=== PATIENT | male | born 1970 | race Caucasian/White ===

== ENCOUNTER 2017-01-01 03:09 | Inpatient (IN) | payer OTHER ==
--- NOTE | 2017-01-01 03:40 | ED.PDOC ---
History of Present Illness - General Chief Complaint: GI Problem Stated Complaint: n/v/d Time Seen by Provider: 01/01/17 03:33 Information Source: patient, RN notes reviewed, Vital Signs reviewed, family Exam Limitations: no limitations - History of Present Illness Initial Comments: Patient comes in with a flare up of his Crohn's Disease. He has been having problems for the past several months. Ever since his last surgery in 2015. He called his GI tonight due to worsening pain and blood in his stool and was told to come to the ER for IV Solu-Medrol and antibiotics. He has been very nauseated today also, not able to keep his medications down. He has not started on his Humira yet due to pharmacy issues. Abdominal Pain Onset Location: generalized abdomen Pain Radiation: no radiation Quality: severe, cramping, stabbing Timing/Duration: getting worse - Symptoms for months, worse today Improving Factors: nothing Worsening Factors: movement Associated Symptoms: diarrhea, fatigue, nausea/vomiting Review of Systems - Review of Systems Constitutional: States: no symptoms reported EENTM: States: no symptoms reported Respiratory: States: no symptoms reported. Denies: short of breath Cardiology: States: no symptoms reported. Denies: chest pain Gastrointestinal/Abdominal: States: see HPI, abdominal pain, diarrhea, nausea, vomiting Genitourinary: States: no symptoms reported Musculoskeletal: States: no symptoms reported Skin: States: no symptoms reported Neurological: States: headache Endocrine: States: no symptoms reported, other - ~ 40-50# weight loss over past 3-4 months due to his Crohn's Hematologic/Lymphatic: States: no symptoms reported Past Medical History (General) - Patient Medical History Hx Seizures: Yes Hx Asthma: Yes Hx Hypertension: Yes Hx Gastroesophageal Reflux: Yes Surgical History: other - Vaccination History Hx Tetanus, Diphtheria Vaccination: Yes Hx Influenza Vaccination: No - Social History Hx Tobacco Use: No Hx Alcohol Use: Yes Family Medical History - Family History Grandparents Family History: Unknown Cause of : cancer Physical Exam - Physical Exam General Appearance: Alert, Obvious distress, Ill Appearing, Well Developed, Well Groomed, Well Nourished Respiratory: chest non-tender, lungs clear, normal breath sounds, no respiratory distress, no accessory muscle use Cardiovascular/Chest: regular rate, rhythm, no edema, no gallop, no JVD, no murmur Gastrointestinal/Abdominal: guarding, tenderness - difusely tender Neurologic: alert, normal mood/affect, oriented x 3 Skin Exam: normal color, warm/dry Progress - Progress Progress: 01/01/17 03:47 Discussed usual treatment for his Crohn's flares. Will start with Solu-Medrol 500mg IV with Zofran and Dilaudid. Then will do IV antibiotics Levaquin and Flagyl. Can't take Sulfasalazine due to NSAID allergy. Patient agreeable with plan. 01/01/17 05:12 Patient is now having a panic attack. He is scared that he is going to need more surgery. He has a history of panic attacks that are treated with Ativan or Xanax. He is laying in bed, curled up shaking and crying. 01/01/17 05:13 Will give some Ativan. 01/01/17 06:10 Anxiety is better but still complaining of 10/10 abd pain despite Dilaudid 2mg IV. Can't use Toradol due to NSAID allergy and now reports can't use Fentanyl due to it making him suicidal. Will add a small dose of Morphine but plan no further pain medications after this. 01/01/17 06:14 now reports he is allergic to Morphine. Will hold off on further pain medication for now. 01/01/17 07:19 Discussed further management with patient and with Hospitalist, Kate Valles. He would like to stay her and continue steroid and antibiotic treatments. Reports typically for his flare it takes 3 rounds of steroids to get things settled down. Kate will come and evaluate patient to determine if she feels admission here is appropriate. Care and plan discussed with Dr. Bee, ER Physician. Departure - Departure Disposition: Discharge to Home or Self Care Condition: Fair Departure Forms: ED Discharge - Pt. Copy, Patient Portal Self Enrollment Home Medications: Ambulatory Orders ALPRAZolam [Xanax] 0.5 mg PO TID 01/01/17 Diphenoxylate/Atropine [Lomotil Tab] 2.5 mg PO PRN 01/01/17 Duloxetine HCl [Cymbalta] 60 mg PO BID 01/01/17 [place] 10/325 1 dose PO PRN 01/01/17 Decision To Admit - Decistion To Admit Decision to Admit Reason: Admit from ER - Crohn's Flare
[2017-01-01] MEDS ORDERED: ONDANSETRON INJ 4 MG/2 ML VIAL IV ONE (03:44)
[2017-01-01] MEDS ORDERED: levoFLOXacin 500MG IV 500 MG in PREMIX BAG 1 BAG IVPB ONE (03:44)
[2017-01-01] MEDS ORDERED: metroNIDAZOLE IV PREMIX 500MG 500 MG in PREMIX BAG 1 BAG IVPB ONE (03:44)
[2017-01-01] MEDS ORDERED: HYDROmorphone HCL INJ 2 MG/ML VIAL IV ONE ×6 (03:44→12:20)
[2017-01-01] MEDS ORDERED: methylPREDNISolone SODIUM SUC 500 MG in SODIUM CHLORIDE 0.9% 250ML 250 ML IVPB ONE (03:44)
[2017-01-01] MEDS ORDERED: SODIUM CHLORIDE 0.9% 250ML 250 ML ONE (03:58)
[2017-01-01] MEDS ORDERED: METHYLPREDNISOLONE SODIUM SUC ONE (03:58)
[2017-01-01] MEDS ORDERED: metroNIDAZOLE IV PREMIX 500MG 100 ML IVPB ONE ×3 (05:13→18:25)
[2017-01-01] MEDS ORDERED: levoFLOXacin 500MG IV 100 ML IVPB ONE (05:53)
[2017-01-01] MEDS ORDERED: MORPHINE SULFATE INJ 10 MG/ML VIAL IV ONE (06:12)
[2017-01-01] MEDS ORDERED: PROMETHAZINE TAB (ER DISP) 25 MG TAB PO ONE (07:42)
[2017-01-01] MEDS ORDERED: PROMETHAZINE HCL 25 MG TAB ONE ×2 (07:45→07:58)
[2017-01-01] MEDS ORDERED: PROMETHAZINE HCL 25 MG TAB PO ONE (08:01)
--- NOTE | 2017-01-01 09:19 | CT ---
PROCEDURE: CT OF THE ABDOMEN AND PELVIS WITH INTRAVENOUS CONTRAST HISTORY: Crohn's, abdominal pain Indication: Same as above Comparison: 04/29/2016 . Technique: CT of the abdomen and pelvis was done with intravenous contrast. Images were obtained from the lung base to the level of the pubic symphysis in axial plane, followed by orthogonal sagittal and coronal reconstruction. Oral contrast was not given for the study. The patient was injected with contrast intravenously, without any documented immediate adverse reactions. This exam was performed according to our departmental dose-optimization program, which includes automated exposure control, adjustment of the mA and/or KV according to the patient's size and/or use of iterative reconstruction technique. FINDINGS: Images through the lung bases do not show any focal infiltrates or pleural effusions. The liver, pancreas, spleen and the bilateral adrenal glands appear unremarkable. The gallbladder is surgically absent The bilateral kidneys enhance with contrast in a normal fashion. The urinary bladder is unremarkable . The bilateral ureters and the bilateral periureteral soft tissues and fat planes are unremarkable. The small bowel does not show any evidence of small bowel obstruction or bowel wall thickening. There is no CT evidence of acute colonic diverticulitis or colitis or large bowel obstruction. There is evidence of prior surgery in the proximal large bowel and the distal small bowel. The splenic and portal veins are of normal caliber, without any filling defects. There is no pathological lymphadenopathy in the retroperitoneum or in the pelvic region. There is no evidence of free fluid or free air in the abdomen or the pelvic region. There is no clinically significant abdominal aortic aneurysm. There is presence of small fat-containing bilateral inguinal hernia defects The visualized lumbar spine is unremarkable . The paravertebral soft tissues are unremarkable. The remainder of the pelvic structures are unremarkable. IMPRESSION: The small bowel does not show any evidence of small bowel obstruction or bowel wall thickening. There is no CT evidence of acute colonic diverticulitis or colitis or large bowel obstruction. There is evidence of prior surgery in the proximal large bowel and the distal small bowel.. Location of Interpretation: [facility] Electronically signed by: Graham Lopes MD 01/01/2017 9:18 AM CDT
[2017-01-01] MEDS ORDERED: SODIUM CHLORIDE 0.9% 1000ML 1,000 ML IVS ONE (09:46)
[2017-01-01] MEDS ORDERED: HYDROmorphone HCL INJ 2 MG/ML VIAL ONE (09:46)
--- NOTE | 2017-01-01 10:13 | HP ---
SUPERVISING PHYSICIAN: Xavier Hightower M.D. CHIEF COMPLAINT: Abdominal pain. HISTORY OF PRESENT ILLNESS: This is a 46 year-old male patient who has a 20 plus year history of Crohn's disease who presented to the Emergency Room today with a Crohn's flare-up. He has been having a flare off and on over the last 4 months. He has had a history of 4 bowel resections due to the Crohn's. His most recent in August of 2016. In the Emergency Room, he was given 500 mg of Solu-Medrol as well as some fluids. He was also given antiemetics as well as pain medication. CT of his abdomen was basically within normal limits. Lab showed a WBC 9.3, hemoglobin 13.5, hematocrit 41.5, neutrophils 71.5. Chemistry was basically within normal limits. Lactic acid 2.1. I was called for admission to the hospital. Prior to admission, I spoke with Dr. Villanueva who is a scheduling clerk in [place]. Dr. Villanueva was the on-call physician for the GI group in [place] as the patient sees Dr. Ramos in that group. I spoke with him because his labs are stable, as well he has a negative abdominal CT. He recommended that we admit him for pain control as well as helping to resolve the Crohn's flare-up. PAST MEDICAL HISTORY: 1. Spinal stenosis. 2. Neuropathy. 3. Pulmonary embolism 4. Hypertension but presently on no medications. 5. Neck and lumbar fracture. 6. Chronic back pain. 7. Insomnia. 8. Depression with anxiety. PAST SURGICAL HISTORY: 1. Colon resection times 4. OUTPATIENT MEDICATIONS: Per the EMR and awaiting verification. ALLERGIES: NSAIDs, FENTANYL AND MORPHINE. FAMILY HISTORY: SOCIAL HISTORY: He was newly yesterday. He just recently moved to [place] to take care of his parents. He denies any ETOH, tobacco or illicit drug use. REVIEW OF SYSTEMS: GENERAL: Positive for fatigue and weight loss of about 40 to 50 pounds since his surgery in August of 2016. Denies fever or chills. HEENT: Denies sinus symptoms, ear pain, vision changes or sore throat. LUNGS: Denies coughing, shortness of breath or wheezing. CARDIAC: Denies chest pain, palpitations or tachycardia. GASTROINTESTINAL: Complains of diffuse abdominal pain but mostly centered in the right upper and lower quadrants and radiates to the umbilicus. He also complains of some nausea and occasional vomiting as well as chronic diarrhea. GENITOURINARY: Denies hematuria, dysuria or nocturia. NEUROLOGIC: Complains of headache. Denies dizziness or seizures. PHYSICAL EXAMINATION: VITAL SIGNS: He is afebrile, heart rate 110, blood pressure 151/83, respiratory rate 18, O2 sat 95%. GENERAL: This is a 46 year-old male patient who is in obvious distress due to pain. HEENT: Normocephalic and atraumatic. Pupils are equal and reactive. Oropharynx is clear. NECK: Supple without mass. There is no jugular venous distention. CHEST: Clear to auscultation bilaterally. There is equal rise and fall of the chest with inspiration and expiration. CARDIOVASCULAR: Regular rate and rhythm. ABDOMEN: Soft, nondistended but it is diffusely tender throughout, but there is pin point moderate tenderness to the right side that radiates to the umbilicus. There is no rebound tenderness. EXTREMITIES: No cyanosis, clubbing or edema. NEUROLOGIC: He is awake, alert and oriented times three. LABORATORY AND RADIOLOGY: Labs and films are as per the history of present illness. ASSESSMENT: 1. Significant history of Crohn's disease with an acute exacerbation. 2. Severe right upper and lower quadrant abdominal pain. 3. Status post bowel resection due to number 1 in August of 2016. 4. Anxiety with depression. 5. Chronic pain with spinal stenosis. 6. Anorexia since surgery in August 2016 with a 40 plus pound weight loss. 7. Insomnia. PLAN: Per recommendation of Dr. Villanueva, GI doctor in [place], we will admit the patient to the hospital. We will taper off his steroids and get his pain under control with Fentanyl. I have also ordered several antiemetics to help with the nausea. We will have to watch him closely. Dr. Villanueva stated that he would probably be in the hospital for several days and hopefully we can get his pain under control. He was to be started on Humira at some point, but he cannot start it with the flare and he has not been able to get it under control to start that, so maybe at some point he can get his Humira started. He will have to have close followup with Dr. Ramos, the GI physician in [place]. Because he has just moved to [place], he does not have a primary care physician so we will need to get him in with a primary care physician. Otherwise I have ordered lab in the morning and we will follow him closely and followup as needed. Dr. Hightower is the collaborating physician available for consultation. #[id number] [facility]
[2017-01-01] MEDS ORDERED: diphenhydrAMINE HCL 25 MG CAP PO PRN (11:37)
[2017-01-01] MEDS ORDERED: diphenhydrAMINE HCL 50 MG/ML VIAL IM PRN (11:37)
[2017-01-01] MEDS ORDERED: NALOXONE HCL INJ 0.4 MG/ML VIAL IV PRN (11:37)
[2017-01-01] MEDS ORDERED: diphenhydrAMINE HCL 50 MG/ML VIAL IV PRN (11:37)
[2017-01-01] MEDS ORDERED: PROCHLORPERAZINE INJ 10 MG/2 ML VIAL IV PRN (11:40)
[2017-01-01] MEDS ORDERED: HYDROmorphone PCA 0.2 MG/ML 1 BAG BAG IVPB SCH (12:00)
[2017-01-01] MEDS: DULoxetine HCL 30 MG CAP PO SCH ×2 (13:26→20:51)
[2017-01-01] MEDS: methylPREDNISolone SODIUM SUC 40 MG/ML VIAL IV SCH ×2 (13:26→20:51)
[2017-01-01] MEDS: IV SET AND CAP CHANGE INJ INJ SCH (13:27)
--- NOTE | 2017-01-01 13:27 | PCM.CORE ---
Physician DVT/VTE - Nurse DVT Assessment & Total Each Risk Factor Represents 3 Points: Hx of DVT/PE Each Risk Factor Represents 1 Point: Age 41-60, Medical PT at Bed Rest Each Risk Factor is 1 Point: Hx of Inflammatory Bowel Disease DVT Assessment Score: 6 - 5 or more Very High Risk Treatments: Early Ambulation *, Sequential Compression Device Pharmacological: Enoxaparin 40mg SQ Daily
[2017-01-01] MEDS: metroNIDAZOLE IV PREMIX 500MG 500 MG in PREMIX BAG 1 BAG IVPB SCH ×2 (13:30→22:09)
[2017-01-01] MEDS: HYOSCYAMINE SULFATE 0.125 MG TAB PO SCH ×2 (13:36→20:50)
[2017-01-01] MEDS: ALPRAZolam 0.5 MG TAB PO SCH ×2 (14:28→20:51)
[2017-01-01] MEDS: HYDROcodone 10MG/APAP 325MG 1 EA TAB PO SCH ×2 (14:28→21:30)
[2017-01-01] MEDS: PROMETHAZINE HCL 25 MG TAB PO PRN ×2 (14:35→21:05)
[2017-01-01] MEDS ORDERED: ALPRAZolam 0.5 MG TAB PO SCH (15:00)
[2017-01-01] MEDS: HYDROmorphone HCL INJ 2 MG/ML VIAL IV PRN ×2 (16:35→20:52)
[2017-01-01] MEDS: ONDANSETRON INJ 4 MG/2 ML VIAL IV PRN (16:47)
[2017-01-01] MEDS: SODIUM CHLORIDE 0.9% (FLUSH) 10 ML SYG IV SCH (20:53)
[2017-01-01] MEDS ORDERED: NON-FORMULARY MEDICATION 1 EA MIS (Duloxetine Hcl [Cymbalta] 60 MG) PO SCH (21:00)
[2017-01-01] MEDS: SODIUM CHLORIDE 0.9% (FLUSH) 10 ML SYG IV PRN (22:08)
[2017-01-01] MEDS: ZOLPIDEM TARTRATE 10 MG TAB PO PRN (22:37)
[2017-01-02] MEDS: HYDROmorphone HCL INJ 2 MG/ML VIAL IV PRN ×5 (01:02→21:06)
[2017-01-02] MEDS: ONDANSETRON INJ 4 MG/2 ML VIAL IV PRN ×2 (01:03→11:28)
[2017-01-02] MEDS: PROMETHAZINE HCL 25 MG TAB PO PRN ×2 (03:13→21:34)
[2017-01-02] MEDS ORDERED: metroNIDAZOLE IV PREMIX 500MG 100 ML IVPB ONE ×3 (05:29→20:06)
[2017-01-02] MEDS ORDERED: levoFLOXacin 500MG IV 100 ML IVPB ONE (05:32)
[2017-01-02] MEDS: methylPREDNISolone SODIUM SUC 40 MG/ML VIAL IV SCH ×3 (05:33→23:44)
[2017-01-02] MEDS: SODIUM CHLORIDE 0.9% (FLUSH) 10 ML SYG IV PRN (05:36)
[2017-01-02] MEDS: metroNIDAZOLE IV PREMIX 500MG 500 MG in PREMIX BAG 1 BAG IVPB SCH ×3 (05:36→21:59)
[2017-01-02] MEDS: levoFLOXacin 500MG IV 500 MG in PREMIX BAG 1 BAG IVPB SCH (06:48)
[2017-01-02] MEDS: ALPRAZolam 0.5 MG TAB PO SCH ×3 (09:23→21:10)
[2017-01-02] MEDS: HYDROcodone 10MG/APAP 325MG 1 EA TAB PO SCH ×3 (09:23→21:09)
[2017-01-02] MEDS: HYOSCYAMINE SULFATE 0.125 MG TAB PO SCH ×2 (09:23→21:09)
[2017-01-02] MEDS: DULoxetine HCL 30 MG CAP PO SCH ×2 (09:23→21:09)
[2017-01-02] MEDS: SODIUM CHLORIDE 0.9% (FLUSH) 10 ML SYG IV SCH ×2 (09:24→21:10)
--- NOTE | 2017-01-02 12:58 | PN ---
DATE: 01/02/17 SUPERVISING PHYSICIAN: Xavier Hightower M.D. SUBJECTIVE: The patient is lying in his hospital bed. His is in his bed with him. He is somewhat sleepy but he does awaken easily. He continues complaints of abdominal pain but it has improved since yesterday. Nursing was concerned that the patient's may be getting some of his oral medications, although his pain medications have been IV. OBJECTIVE: VITAL SIGNS: He is afebrile, heart rate 83, blood pressure 108/65, it was elevated when his pain was increased to 154/82, respiratory rate 18, O2 sat is 97%. RESPIRATORY: Clear to auscultation bilaterally. CARDIAC: Regular rate and rhythm. ABDOMEN: Diffusely tender especially around the umbilicus as well as the epigastric area. Bowel sounds are positive. There is no rebound tenderness. NEUROLOGIC: He is sleepy but he is oriented times three. LABORATORY: WBCs are 18.2, platelets have come down slightly to 424, neutrophils are 90. Chemistries are basically within normal limits with the exception of his blood glucose is 160. All other labs and films have been reviewed via the EMR. ASSESSMENT: 1. Significant history of Crohn's disease with an acute exacerbation. 2. Severe right upper and lower quadrant abdominal pain. 3. Status post bowel resection due to number 1 in August of 2016. 4. Anxiety with depression. 5. Chronic pain with spinal stenosis. 6. Anorexia since surgery in August 2016 with a 40 plus pound weight loss. 7. Insomnia. PLAN: We will continue present supportive care, including pain medications. I have slightly tapered his steroids. Although he says that oral steroids do not work, he will have to go home on some sort of steroid taper. He will need close followup with a GI doctor. He has mentioned his pain is much improved because his abdomen is not nearly as tender as it was yesterday, but there is still some pain involved. I have ordered routine lab in the morning. I have also ordered an abdominal x-ray. We have not had one of those, so I will order that. Dr. Villanueva has said that he would probably be in here for several days due to the pain, so will have to try to watch that closely and wean him off of the pain medications. We will continue to monitor him closely and followup as needed. Dr. Hightower is the collaborating physician available for consultation. #[id number] [facility]
[2017-01-02] MEDS: ZOLPIDEM TARTRATE 10 MG TAB PO PRN (23:44)
[2017-01-03] MEDS ORDERED: metroNIDAZOLE IV PREMIX 500MG 100 ML IVPB ONE ×3 (01:17→20:45)
[2017-01-03] MEDS ORDERED: levoFLOXacin 500MG IV 100 ML IVPB ONE (01:17)
[2017-01-03] MEDS: HYDROmorphone HCL INJ 2 MG/ML VIAL IV PRN ×6 (01:23→23:41)
[2017-01-03] MEDS: SODIUM CHLORIDE 0.9% (FLUSH) 10 ML SYG IV PRN ×4 (01:24→23:40)
[2017-01-03] MEDS: ONDANSETRON INJ 4 MG/2 ML VIAL IV PRN ×2 (01:37→23:41)
[2017-01-03] MEDS: metroNIDAZOLE IV PREMIX 500MG 500 MG in PREMIX BAG 1 BAG IVPB SCH ×3 (05:39→21:31)
[2017-01-03] MEDS: PROMETHAZINE HCL 25 MG TAB PO PRN ×3 (05:40→20:55)
[2017-01-03] MEDS: levoFLOXacin 500MG IV 500 MG in PREMIX BAG 1 BAG IVPB SCH (06:38)
--- NOTE | 2017-01-03 07:05 | RAD ---
CLINICAL HISTORY:crohn's. :1970. Sex:Male. TECHNIQUE: Supine and upright views of the abdomen. There is no intestinal dilatation. Cholecystectomy clips are noted. There is no mass. There is no free air. There is no opaque calculus. Skeletal structures are unremarkable. The visible lung bases are clear IMPRESSION: 1. No acute radiographic findings.. Electronically signed by: Huber Thomas MD 01/03/2017 7:04 AM CDT
[2017-01-03] MEDS: HYDROcodone 10MG/APAP 325MG 1 EA TAB PO SCH ×3 (10:01→20:55)
[2017-01-03] MEDS: DULoxetine HCL 30 MG CAP PO SCH ×2 (10:02→20:55)
[2017-01-03] MEDS: ALPRAZolam 0.5 MG TAB PO SCH ×3 (10:02→20:55)
[2017-01-03] MEDS: SODIUM CHLORIDE 0.9% (FLUSH) 10 ML SYG IV SCH ×2 (10:02→20:55)
[2017-01-03] MEDS: HYOSCYAMINE SULFATE 0.125 MG TAB PO SCH ×2 (10:02→20:54)
[2017-01-03] MEDS: methylPREDNISolone SODIUM SUC 40 MG/ML VIAL IV SCH ×2 (12:23→23:40)
[2017-01-03] MEDS ORDERED: ALUM & MAG HYDROX-SIMETHICONE 30 ML UD PO PRN (16:00)
[2017-01-03] MEDS: OMEPRAZOLE CAP 20 MG CAP PO SCH (17:19)
--- NOTE | 2017-01-03 17:29 | PN ---
DATE: 01/03/17 SUBJECTIVE: The patient is sitting up in the bed very alert even though having just received 3 mg of Dilaudid IV. He apparently has been fighting this inflammatory bowel disease with Crohn's disease for over 30 years since age 16. He has had at least 4 partial bowel resections, most recently having been performed at [facility] in [place]. He sees Dr. Ramos, GI specialist in [place]. He has recently been . He states that his general pain is a little better today compared to 2 days ago. He is on a regular diet which will be changed to dietary consult to full liquid and to mechanical soft combination with decreased dairy to see if it will begin to assist. Significant weight loss recently. Continues with heartburn for which he usually drinks mild to assuage the symptoms. He has been on Humira in the past but it has been stopped and will have to be restarted again after his current exacerbation. OBJECTIVE: Afebrile, blood pressure 137/85, room air 98% saturation. Weight is pending for today. LUNGS: Clear. HEART: Tones regular. ABDOMEN: Has some diminished bowel tones. When gently palpating on the left abdomen, there is some discomfort radiating to the right lower quadrant. Slight degree of involuntary tightening of some of the abdominal muscles are noted. Slight degree of rebound evident when palpating gently in left lower quadrant and then released with discomfort primarily in the right lower quadrant by referral. No masses otherwise noted. Close observation necessary. LABORATORY: White count is up to 22,600 with neutrophils 92%, hemoglobin 11.9. Chemistries generally within normal limits. BUN 15, glucose 147. Stool guaiac is negative. Urinalysis was clean. No cultures obtained. Abdominal x-ray is nonspecific. ASSESSMENT: 1. Acute abdominal pain. 2. Chronic history of significant Crohn's disease currently with an acute exacerbation present for the last 30 years. 3. Status post bowel resection fourth surgery in August of 2016 at [facility] in [place]. 4. Chronic pain with spinal stenosis being followed by neurosurgery. 5. Significantly decreased appetite and caloric consumption since last surgery with over 40 pounds of weight loss with his current diet needing to be modified and to be observed. 6. Chronic anxiety with depression. 7. History of insomnia. PLAN: Will continue with analgesic control and try to adjust the dosings down as possible. Observe abdominal discomfort and findings closely. Change diet from regular to a full liquid with minimizing dairy as possible yet with protein supplements after dietitian consult. Will discuss the possibility of being seen by GI specialist, Dr. Lopez, this next Tuesday in the [facility] and he will be able to communicate with Dr. Ramos regarding future options. Presently on Solu-Medrol 40 mg every 12 hours as well as Levofloxacin and Metronidazole antibiotic coverage. The patient will require specialized and continued gastroenterological followup and management. #[id number] [facility]
[2017-01-03] MEDS: ZOLPIDEM TARTRATE 10 MG TAB PO PRN (23:42)
[2017-01-04] MEDS: SODIUM CHLORIDE 0.9% (FLUSH) 10 ML SYG IV PRN ×2 (03:38→06:38)
[2017-01-04] MEDS: HYDROmorphone HCL INJ 2 MG/ML VIAL IV PRN ×5 (03:38→21:37)
[2017-01-04] MEDS: PROMETHAZINE HCL 25 MG TAB PO PRN ×3 (03:39→12:50)
[2017-01-04] MEDS ORDERED: metroNIDAZOLE IV PREMIX 500MG 100 ML IVPB ONE ×3 (05:00→19:43)
[2017-01-04] MEDS ORDERED: levoFLOXacin 500MG IV 100 ML IVPB ONE (05:01)
[2017-01-04] MEDS: metroNIDAZOLE IV PREMIX 500MG 500 MG in PREMIX BAG 1 BAG IVPB SCH ×3 (05:19→21:43)
[2017-01-04] MEDS: OMEPRAZOLE CAP 20 MG CAP PO SCH (06:07)
[2017-01-04] MEDS: levoFLOXacin 500MG IV 500 MG in PREMIX BAG 1 BAG IVPB SCH (06:07)
[2017-01-04] MEDS: ONDANSETRON INJ 4 MG/2 ML VIAL IV PRN ×2 (06:34→17:18)
[2017-01-04] MEDS: ALPRAZolam 0.5 MG TAB PO SCH ×3 (08:24→20:52)
[2017-01-04] MEDS: HYOSCYAMINE SULFATE 0.125 MG TAB PO SCH ×2 (08:25→20:51)
[2017-01-04] MEDS: HYDROcodone 10MG/APAP 325MG 1 EA TAB PO SCH (08:25)
[2017-01-04] MEDS: DULoxetine HCL 30 MG CAP PO SCH ×2 (08:26→20:57)
[2017-01-04] MEDS: SODIUM CHLORIDE 0.9% (FLUSH) 10 ML SYG IV SCH ×2 (08:27→20:52)
[2017-01-04] MEDS: BIFIDOBACTERIUM INFANTIS 4 MG CAP PO SCH ×3 (12:05→20:54)
[2017-01-04] MEDS: methylPREDNISolone SODIUM SUC 40 MG/ML VIAL IV SCH (12:05)
[2017-01-04] MEDS: HYDROcodone 10MG/APAP 325MG 1 EA TAB PO PRN ×2 (15:42→23:38)
[2017-01-04] MEDS: MINERALS PO SCH (17:16)
[2017-01-04] MEDS: MULTI VITAMINS PO SCH (17:16)
--- NOTE | 2017-01-04 17:26 | PN ---
DATE: 01/04/17 SUBJECTIVE: The patient is sitting up in the bed. His new is also lying on the bed keeping him company. His appetite is poor, especially with increasing pain but in many ways he appears to be in minimal, if any, distress. I discussed with him the necessity of tapering him down off of the Dilaudid 3 mg every 4 hours before he will be able to go home. He very much wished to continue on the same dose until tonight but the tapering down will initiate immediately in an effort to assist with his ongoing recovery. We are also giving his Hydrocodone on a p.r.n. basis, not a scheduled basis. The patient does have a pain contract with the pain clinic, so no additional analgesics can be given at the time of his discharge. OBJECTIVE: Afebrile, blood pressure 145/87, pulse oximetry 98% room air. His weight is 75.4 kilos. GENERAL: The patient is awake, alert, in no acute distress. Still complaining of pain across the abdomen primarily. It does not radiate to the back. Loose stool has not been a significant problem. ABDOMEN: Has slightly increased bowel tones compared to yesterday. Still somewhat tender generally, but especially in the epigastrium and to the right of midline of the periumbilical region. No masses palpable or appreciated. Heart and lungs otherwise normal. LABORATORY: White count has come down from 22,000 down to 16,000, hemoglobin 11.6 and 93% neutrophils. Chemistries show potassium 4.1, BUN 14. Stool guaiac yesterday was negative on one occasion and positive on the next. ASSESSMENT: 1. Acute abdominal pain. 2. Chronic history of significant Crohn's disease with an acute exacerbation with the disease being present for the last 30 years. 3. Status post bowel resection on 4 different occasions with the most recent one being August 2016 at [facility] in [place]. 4. Chronic pain syndrome with spinal stenosis in the neck region with resultant pain down both lower extremities being followed by neurosurgery. 5. Significantly decreased appetite and caloric consumption since the last surgery about 4 months ago with over 40 pounds of weight loss with ongoing nutrition important. 6. Chronic anxiety with depression. 7. History of insomnia. PLAN: Lace Tearing Supervisor consultation is scheduled. The patient may benefit by some Lactaid along with his diet to help prevent the possibility of some transient malabsorption. He is going to be started on some liquid vitamins because the patient with multiple areas of his small intestines, including the terminal ileum and parts of the colon having been removed may result in a relative nutritional deficiency state requiring attention by a nutritional specialist. He is to be continued on Align probiotics. Continue to taper and get him down to maybe 1 mg of Dilaudid every 4 to 6 hours as needed for pain by tomorrow. Hope to be able to get an appointment to be seen by Dr. Lopez tomorrow in the clinic. Will try to arrange for that appointment at this time and then he can have followup with Dr. Ramos who sees him at the [facility] after discharge. Close followup with the local clinic as well. #[id number] [facility]
[2017-01-04] MEDS ORDERED: HYDROmorphone HCL INJ 2 MG/ML VIAL IV PRN (18:30)
--- NOTE | 2017-01-04 19:14 | PN ---
PROGRESS NOTE ADDENDUM DATE: 01/04/17 SUBJECTIVE: The patient at approximately 2:00 PM had his Dilaudid 3 mg IV every 4 hours decreased on a tapering dose down to 2 mg IV every 4 hours for the purpose of observation to see if he was getting close to the point of being able to taper down eventually to a 1 mg and eventually be able to get back home off of the current medication treatment. The patient was under the understanding that he wanted the titration from 3 to 2 mg to occur later this evening, but because the order had already been written and I wished to observe directly the effects of the 2 mg reduced dose, he was only given 2 mg. He initially stated he had an "OK afternoon" but then the patient became very upset and in fact "angry", and felt that he was lied to when he had received 2mg , while he was wanting 3 mg. He stated his pain was 7 out of 10, yet fortunately he appeared in no distress. His IV in the left hand, according to the patient, apparently may have infiltrated a little bit thereby also reducing the absorbed quantity of the medication. The nursing staff stated his IV had not infiltrated and the IV site was changed for other reasons. The patient was especially irate that his Dilaudid had been decreased from 3 to 2 mg without him fully knowing it. He informs me that when he doesn't get enough pain medication, it has resulted in his having to go to surgery and having more intestines removed. This was discussed at length with him and his , and they eventually were able to understand the attempt to be observed at the reduced titrated dose in an effort to determine the level of need for the medication in anticipation eventually of titrating off and being able to go home. He does have a pain contract with his neurologist because of chronic spinal stenosis which prohibits him from going home on any pain medicines other than what he is now getting. At home, he is now receiving [place] 10s three times a day and was on only 2 a day until the flare-up of the abdominal pain. The patient was very appreciative of the input from the pond sawyer and will continue to learn more because of the significant influence that nutrition has upon an inflammatory bowel process. PLAN: His condition warrants ongoing pain relief with an appointment in GI clinic with Dr. Lopez in the morning who will be able to evaluate the patient and begin the process of making plans as to how to discharge him home. Social Service will see him in the morning and try to assist with communication to the insurance company who initially has now denied coverage of the Humira which has been very helpful in the past in producing remissions of the granulomatous enterocolitis. We ended our conversation to be focusing upon the hope of specific treatment in the future and though the 2 mg dose did not help him, he will be continued on 2-3 mg every 4 hours until he is able to be tapered to 2 mg, and then 1 mg and then stop in a timely fashion. He will need close followup with Dr. Ramos, GI clinic in [place]. Also encouraged to have followup back with [facility] where the surgeries have been performed. Also consider further investigation as to specialty centers primarily focusing on Crohn's disease and its treatment course. If this involves going to [facility] or [facility], this can be encouraged as a second opinion. The neurologist who is working with him and giving him some analgesia for his spinal stenosis, is also instrumental in deciding eventually when surgical intervention may be required for mechanical decompression of spinal stenosis as described can take place, thereby assisting with the underlying pathology of a lot of his pain. Close followup is necessary. #[id number] [facility]
[2017-01-04] MEDS: ZOLPIDEM TARTRATE 10 MG TAB PO PRN (23:37)
[2017-01-05] MEDS: methylPREDNISolone SODIUM SUC 40 MG/ML VIAL IV SCH ×3 (00:49→23:38)
[2017-01-05] MEDS: HYDROmorphone HCL INJ 2 MG/ML VIAL IV PRN ×6 (01:44→22:50)
[2017-01-05] MEDS: IV SET AND CAP CHANGE INJ INJ SCH (05:21)
[2017-01-05] MEDS: SODIUM CHLORIDE 0.9% (FLUSH) 10 ML SYG IV PRN (05:27)
[2017-01-05] MEDS: PROMETHAZINE HCL 25 MG TAB PO PRN ×2 (05:27→14:19)
[2017-01-05] MEDS ORDERED: levoFLOXacin 500MG IV 100 ML IVPB ONE (05:29)
[2017-01-05] MEDS ORDERED: metroNIDAZOLE IV PREMIX 500MG 100 ML IVPB ONE ×3 (05:30→21:52)
[2017-01-05] MEDS: metroNIDAZOLE IV PREMIX 500MG 500 MG in PREMIX BAG 1 BAG IVPB SCH ×3 (05:35→22:13)
[2017-01-05] MEDS: OMEPRAZOLE CAP 20 MG CAP PO SCH (06:17)
[2017-01-05] MEDS: levoFLOXacin 500MG IV 500 MG in PREMIX BAG 1 BAG IVPB SCH (06:52)
[2017-01-05] MEDS: MULTI VITAMINS PO SCH ×2 (07:47→17:38)
[2017-01-05] MEDS: MINERALS PO SCH ×2 (07:47→17:38)
[2017-01-05] MEDS: HYDROcodone 10MG/APAP 325MG 1 EA TAB PO PRN ×2 (08:27→18:23)
[2017-01-05] MEDS: BIFIDOBACTERIUM INFANTIS 4 MG CAP PO SCH ×3 (08:29→20:23)
[2017-01-05] MEDS: DULoxetine HCL 30 MG CAP PO SCH ×2 (08:29→20:23)
[2017-01-05] MEDS: ALPRAZolam 0.5 MG TAB PO SCH ×3 (08:29→20:23)
[2017-01-05] MEDS: HYOSCYAMINE SULFATE 0.125 MG TAB PO SCH ×2 (08:29→20:22)
[2017-01-05] MEDS: SODIUM CHLORIDE 0.9% (FLUSH) 10 ML SYG IV SCH ×2 (08:29→20:23)
[2017-01-05] MEDS: ONDANSETRON INJ 4 MG/2 ML VIAL IV PRN (09:35)
[2017-01-06] MEDS: ZOLPIDEM TARTRATE 10 MG TAB PO PRN (00:06)
[2017-01-06] MEDS: PROMETHAZINE HCL 25 MG TAB PO PRN ×3 (01:57→17:35)
[2017-01-06] MEDS: HYDROmorphone HCL INJ 2 MG/ML VIAL IV PRN ×4 (03:04→20:29)
[2017-01-06] MEDS: SODIUM CHLORIDE 0.9% (FLUSH) 10 ML SYG IV PRN ×2 (03:04→21:55)
[2017-01-06] MEDS ORDERED: levoFLOXacin 500MG IV 100 ML IVPB ONE (06:09)
[2017-01-06] MEDS: levoFLOXacin 500MG IV 500 MG in PREMIX BAG 1 BAG IVPB SCH (06:17)
[2017-01-06] MEDS: HYDROcodone 10MG/APAP 325MG 1 EA TAB PO PRN ×3 (06:32→17:36)
--- NOTE | 2017-01-06 07:56 | PN ---
DATE: 01/05/17 SUBJECTIVE: This morning the patient was seen by Dr. Lopez in consultation. Once he was back to his room, I was able to visit with the patient. Initially, the patient was very hostile along with his when I started discussing plan of care in regards to working to titrate down his Dilaudid so we could work to get him on a p.o. regimen for pain control. After a lengthy conversation and the patient going back to see Dr. Lopez, the misunderstanding was cleared and the patient was in agreement that we would work to titrate his pain medications as possible but would not withhold pain medications as the patient is quite adamant that he needs Dilaudid for pain control. At one point, the patient was upset to the point where he said, "I will just leave now and seek medical attention elsewhere." Again, after assuring the patient that we were in continuation of his treatment plan and we were all on the same page in regards to plan of care, the patient was much more approachable and encouraged to work with staff in helping control his pain as well as working to titrate his pain medication regimen. He was also instructed that as he was on strong doses of pain medication he was not to be up and about without any assistance at any time in regards to the possibility of concerns for falls. He remains afebrile, he has had some nausea but has not had any actual emesis. His notes that he did have a "bloody stool" this morning. Occult bloods did show 2 positive results, however, the patient remains hemodynamically stable and we are closely observing this. OBJECTIVE: VITAL SIGNS: T-max 90.7, pulse 81, blood pressure 127/80, respirations 18, saturation 99% on room air. I&Os are not well documented as he has had bowel movements and has voided and those have not been measured. His weight remains stable at 75.4 kg which is actually improved from admission. GENERAL: Initial presentation was quite angry and once was able to calm down he appeared to be in no acute distress and was actually sitting on the edge of the bed conversing quite easily with his . CHEST: Remain clear to auscultation bilaterally. HEART: Remains regular rate and rhythm without a notable murmurs, gallops, or rubs ABDOMEN: Diffusely tender on the left quadrant and on palpitation has some referred pain to the right quadrant. Bowel sounds are positive. EXTREMITIES: No cyanosis, clubbing, or edema. NEUROLOGICAL: He is alert, and oriented x3. LABORATORY: White count is showing improvement, now is down to 16.5, hemoglobin 11.6, hematocrit 36.4 which has been stable for well over 48 hours. His RBC indices show hypochromic microcytic with a platelet count of 412,000. Differential does show a left shift. Chemistries show to be within normal limits on his electrolytes with potassium 4.1, BUN 14, creatinine 0; 9. Glucose this morning was 207, calcium 8.6. ASSESSMENT: 1. Acute abdominal pain, persistent and requiring pain medication to include IV Dilaudid. 2. Chronic history of Crohn's disease with acute exacerbation that has been on an off for the last 30 years. with the patient trying again on corticosteroids and parenteral antibiotics and showing to be stable but continues with a significant amount of pain. 3. Status post bowel resection on 4 surgeries with the most recent one being August 2016 at [facility] in [place]. 4. Chronic pain with spinal stenosis followed by neurosurgery. 5. Decreased appetite and caloric consumption since his previous surgeries with well over 40 pound weight loss with nutritional status being monitored by nutritional services and modified for maximizing caloric intake. . 6. Chronic anxiety with depression. 7. History of insomnia. 8. Leukocytosis showing improvement, likely secondary to hi acute exacerbation of Crohn's, although CT was without any significant findings as far as infectious or abscess process. Also feel like some of his elevated white count is due to current steroid administration as well as some demarginalization for pain and anxiety. PLAN: After further discussion with the patient and after having the patient being seen by Dr. Lopez, we are all in agreement that we need to work to titrate the patient's medication regimen including his Dilaudid down to where he can go home at some point on oral therapy. He has been instructed to contact his pain medication provider, his neurosurgeon, in regards to need for further medication on discharge if he is under a pain contract. We will continue with nutritional services and monitor his intakes closely with supplementation with protein drinks. Will plan to do additional studies on his stool to include a C-Diff and monitor his H&H closely. He has been instructed that when he is taking his pain medication with assistance only as he is a severe risk for falls. Will attempt to start trying to titrate his Dilaudid down tomorrow as he has been significantly in pain today according to the patient and his and has been obviously upset with all of the decision processes that have been in place. wet room worker, Amina, continue s to help the patient in attempts to secure Humira. The family members and patient feel like once the patient starts on Humira, all his pain will resolve. I did reinforce that again, we need to not stop completely pain medication regimen but to work to get to a sensible pain regimen that the patient can be discharged on. He will continue on antibiotics to include Levaquin and Flagyl with close monitoring of his laboratory studies. I will await stool study findings. I anticipate hopefully to discharge the patient within the next 2 to 3 days, again with his assistance in titrating his pain medication regimen as possible. Until then, we will continue to monitor closely and treat appropriately. #[id number] [facility]
[2017-01-06] MEDS: MULTI VITAMINS PO SCH ×2 (07:58→17:06)
[2017-01-06] MEDS: MINERALS PO SCH ×2 (07:58→17:06)
[2017-01-06] MEDS: HYOSCYAMINE SULFATE 0.125 MG TAB PO SCH ×2 (09:06→20:31)
[2017-01-06] MEDS: BIFIDOBACTERIUM INFANTIS 4 MG CAP PO SCH ×3 (09:07→20:31)
[2017-01-06] MEDS: LISINOPRIL 10 MG TAB PO SCH (09:07)
[2017-01-06] MEDS: SODIUM CHLORIDE 0.9% (FLUSH) 10 ML SYG IV SCH ×2 (09:07→20:30)
[2017-01-06] MEDS: ALPRAZolam 0.5 MG TAB PO SCH ×5 (09:07→20:33)
[2017-01-06] MEDS: DULoxetine HCL 30 MG CAP PO SCH ×2 (09:07→20:31)
[2017-01-06] MEDS ORDERED: metroNIDAZOLE IV PREMIX 500MG 100 ML IVPB ONE ×2 (09:28→20:01)
[2017-01-06] MEDS ORDERED: HYDROmorphone HCL INJ 2 MG/ML VIAL IV PRN (11:12)
[2017-01-06] MEDS: methylPREDNISolone SODIUM SUC 40 MG/ML VIAL IV SCH (11:58)
[2017-01-06] MEDS: OMEPRAZOLE CAP 20 MG CAP PO SCH (12:00)
[2017-01-06] MEDS: metroNIDAZOLE IV PREMIX 500MG 500 MG in PREMIX BAG 1 BAG IVPB SCH ×3 (12:00→21:52)
--- NOTE | 2017-01-06 21:46 | PN ---
DATE: 01/06/17 SUPERVISING PHYSICIAN: Ap Sal M.D. SUBJECTIVE: The patient continues to have a significant amount of pain. Continues to request at least 2 of Dilaudid. I did discuss as well as Dr. Sal did in the efforts to try to titrate his Dilaudid regimen down in effort to get him off IV pain medication regimen. The patient is in agreement with this and will attempt to slowly taper the patient off, continue over the next several days. He remains afebrile. He has not had any nausea or vomiting. OBJECTIVE: VITAL SIGNS: Temperature 97.0, pulse 104, blood pressure 137/93, respirations 18, O2 sat 97% on room air. CHEST: Clear to auscultation bilaterally. HEART: Regular rate and rhythm. ABDOMEN: Continues to be diffusely tender, more so on the lower quadrants and more so with rebound versus direct palpation, although his abdomen remains soft. NEUROLOGIC: He is alert and oriented times three. EXTREMITIES: No clubbing, cyanosis or edema. LABORATORY: Repeat laboratory studies in the morning to include a CBC and BMP as his BMP has been stable and his white count has been improving. Will plan to repeat an abdominal series in the morning to further follow his abdominal discomfort to ensure he is not developing an ileus or other complications. ASSESSMENT: 1. Acute abdominal pain, continued with requiring ongoing pain medication regimen to include IV Dilaudid with the patient having a significant history of Crohn's disease. 2. Chronic history of Crohn's disease with acute exacerbation having been on and off for the last 30 years with the patient continued on corticosteroids and parenteral antibiotics continuing to show stable, but continues to require significant pain medication. 3. Status post bowel resection on 4 surgeries with the most recent one being August 2016 at [facility] in [place]. 4. Chronic pain with spinal stenosis followed by neurosurgery. 5. Decreased appetite and caloric consumption since previous surgeries with well over 40 pound weight loss reported by the patient with nutritional status being monitored by nutritional services with diet being modified maximization of caloric intake. 6. Chronic anxiety with depression. 7. History of insomnia. 8. Leukocytosis continuing to show improvement, with close followup required felt to be secondary to the exacerbation of Crohn's disease from demarginalization from pain as well as complications from current steroid administration. PLAN: Wellbutrin plan to repeat his laboratory studies in the morning and continue to work to titrate the patient's Dilaudid down in attempts to get him off of IV pain medicine. Therefore will decrease his dosage from 2 to 3 to 1 to 2 today and double up on his [place] in anticipation of decreasing the Dilaudid once again tomorrow. The patient is very apprehensive at times to have his pain medicine decreased, however now he does understand that in an effort to help in his discharging efforts to be made to assist in controlling his pain medicine with oral medications if possible. The patient notes that he is willing to work with efforts and cooperate. Again, he has been reassured that his pain will be treated adequately and no pain medication will be withheld as he does have a high tolerance for opioids and honestly has a history of misuse with a significant amount of pain secondary to his ongoing Crohn's. Will await findings from Amina in regards to the possible Humira acquisition at some point, however this probably will not occur prior to discharge and will continue in the outpatient setting. Will anticipate discharge within the next 2 to 3 days as we continue to titrate his pain medications. Until then will continue to monitor the patient closely and treat appropriately. He does have continued stool studies pending to include a Clostridium Difficile and occult blood as he continuous to have some degree of diarrhea, but remains clinically stable. Will plan to repeat his laboratory studies in the morning. #[id number] [facility]
[2017-01-07] MEDS: SODIUM CHLORIDE 0.9% (FLUSH) 10 ML SYG IV PRN ×5 (00:03→06:45)
[2017-01-07] MEDS: methylPREDNISolone SODIUM SUC 40 MG/ML VIAL IV SCH ×2 (00:03→12:28)
[2017-01-07] MEDS: HYDROmorphone HCL INJ 2 MG/ML VIAL IV PRN ×3 (00:37→08:59)
[2017-01-07] MEDS: PROMETHAZINE HCL 25 MG TAB PO PRN (00:40)
[2017-01-07] MEDS ORDERED: DIPHENOXYLATE HCL/ATROPINE 2.5 MG TAB PO PRN (01:30)
[2017-01-07] MEDS ORDERED: metroNIDAZOLE IV PREMIX 500MG 100 ML IVPB ONE (02:34)
[2017-01-07] MEDS ORDERED: levoFLOXacin 500MG IV 100 ML IVPB ONE (02:35)
[2017-01-07] MEDS: HYDROcodone 10MG/APAP 325MG 1 EA TAB PO PRN (02:40)
[2017-01-07] MEDS: metroNIDAZOLE IV PREMIX 500MG 500 MG in PREMIX BAG 1 BAG IVPB SCH (05:31)
[2017-01-07] MEDS: levoFLOXacin 500MG IV 500 MG in PREMIX BAG 1 BAG IVPB SCH (06:34)
[2017-01-07] MEDS: OMEPRAZOLE CAP 20 MG CAP PO SCH (06:45)
--- NOTE | 2017-01-07 07:24 | RAD ---
Abdomen series 3 views INDICATION: Abdominal pain IMPRESSION: Heart size normal. Lungs appear clear. No focal infiltrate or free air identified. Surgical clips in the gallbladder region and right lower abdomen. Short air-fluid levels in the colon nonspecific possible diarrhea.No evidence of bowel obstruction. Electronically signed by: Brandon Arnold MD 01/07/2017 7:23 AM CDT
[2017-01-07] MEDS: MULTI VITAMINS PO SCH (07:46)
[2017-01-07] MEDS: MINERALS PO SCH (07:46)
[2017-01-07] MEDS ORDERED: HYDROcodone 10MG/APAP 325MG 1 EA TAB PO PRN (08:51)
[2017-01-07] MEDS: HYOSCYAMINE SULFATE 0.125 MG TAB PO SCH (08:54)
[2017-01-07] MEDS: DULoxetine HCL 30 MG CAP PO SCH (08:54)
[2017-01-07] MEDS: BIFIDOBACTERIUM INFANTIS 4 MG CAP PO SCH (08:55)
[2017-01-07] MEDS: LISINOPRIL 10 MG TAB PO SCH (08:55)
[2017-01-07] MEDS: SODIUM CHLORIDE 0.9% (FLUSH) 10 ML SYG IV SCH (08:55)
[2017-01-07] MEDS: ALPRAZolam 0.5 MG TAB PO SCH (08:55)
[2017-01-07] MEDS ORDERED: HYDROmorphone HCL INJ 2 MG/ML VIAL IV PRN (09:16)
[2017-01-07 11:17] VITALS: BP 146/88; TEMP 96.5; O2SAT 99
[2017-01-07] MEDS: IV SET AND CAP CHANGE INJ INJ SCH (12:42)
[2017-01-07] MEDS ORDERED: HYDROcodone 10MG/APAP 325MG 1 EA TAB PO SCH (15:00)
--- NOTE | 2017-01-10 08:53 | DS ---
SUPERVISING PHYSICIAN: Xavier Hightower MD DISCHARGE DIAGNOSIS: 1. Acute abdominal pain, requiring ongoing pain management with Dilaudid initially, with the patient having a significant history of Crohn's disease without any significant clinical findings to indicate a flare-up other than elevated white count. 2. Chronic history of Crohn's disease with acute exacerbation that has been on an off for the last 30 years with the patient continued on corticosteroids and parenteral antibiotics continuing to be stable at discharge, but requiring a significant amount of pain medication, resulting in extensive stay. 3. Status post bowel resection on 4 previous surgeries with the most recent one being in August 2016 at [facility] in [place]. 4. Chronic pain with spinal stenosis followed by neurosurgery. 5. Decreased appetite and caloric consumption since his previous surgeries with well over 40 pound weight loss reported by the patient with nutritional status being monitored by nutritional services with diet being modified to maximize his caloric intake. 6. Chronic anxiety with depression, on Xanax. 7. History of insomnia, taking Ambien. 8. Leukocytosis, showing improvement through clinical stay with close followup required, felt to be secondary to exacerbation of Crohn's disease and some demargination secondary to ongoing pain as well as continuation of current steroid administration. HISTORY OF PRESENT ILLNESS: Mr. Angel is a 46-year-old, male patient who was admitted on 01/01/17 who has a 20 plus year history of Crohn's disease and presented to the Emergency Room complaining of a Crohn's flare-up. He has been having a flare off and on over the last 4 months. He has had a history of 4 bowel resections due to the Crohn's. His most recent bowel resection was in August of 2016. In the Emergency Room, he was given 500 mg of Solu-Medrol as well as some fluids. He was also given antiemetics as well as pain medication. CT of his abdomen was basically within normal limits. Lab showed a WBC 9.3, hemoglobin 13.5, hematocrit 41.5, neutrophils 71.5. Chemistry was basically within normal limits. Lactic acid 2.1. The patient was to be admitted to the hospital. Prior to this, the hospitalist was able to speak with Dr. Villanueva who is a chief internal auditor in [place]. Dr. Villanueva was the on-call physician for the GI group in [place] as the patient sees Dr. Ramos in that group. After speaking with him and given labs were stable, as well he has a negative abdominal CT, he recommended the patient be admitted for pain control as well as helping to resolve the Crohn's flare-up. LABORATORY: Initial white count was 9.3. After initiation of Solu-Medrol and continuation of, he had a maximum of 22.6, which then slowly decreased and was 18.7 at discharge. Hemoglobin and hematocrit were stable and on discharge were 13.0 and 41.2, differential with left shift. Chemistries basically were all within normal limits through the entire hospitalization. At discharge, sodium was 139, potassium 3.9, BUN 9, creatinine 0.83, calcium normal at 9.0. Liver functions were all within normal limits. Urinalysis was within normal limits. Three occults bloods showed two positive and one negative. Toxicology screen was positive for opioids and benzodiazepines, all other substances tested were negative. MICROBIOLOGY: No specimens submitted for review. RADIOLOGY: Abdominopelvic CT in the Emergency Department prior to admission per radiology interpretation showed small bowel with no evidence of small bowel obstruction or bowel wall thickening. There was no CT evidence of acute colonic diverticulitis or colitis or large bowel obstruction. There was evidence of prior surgery in the proximal large bowel and distal small bowel. This was followed up with multiple abdominal x-rays, the first on 01/03/17 showing no acute radiographic findings. Final was completed on morning of discharge and per radiology interpretation showed short air-fluid levels in the colon, nonspecific, possibly diarrhea, but no evidence of bowel obstruction. No focal infiltrate or free air was identified. HOSPITAL COURSE: Mr. Angel was admitted as noted in history of present illness for a flare-up of Crohn's, control of pain, antiemetics for nausea and vomiting. He was provided Dilaudid for pain control as well as Animas, Phenergan for nausea and vomiting and Xanax for anxiety. He was provided fluids , started on Solu-Medrol which was continued through admission. The patient did show slow improvement. His pain was difficult to manage. He was very to taper his Dilaudid down, however, on the morning of discharge, the patient was much more comfortable and felt like he was ready to go home. He did have some diarrhea through his hospital stay, but was actually noted to be ambulating through the hallways without assistance continually every day despite being requested to not ambulate without assistance. The patient remained hemodynamically stable through the entire hospitalization with temperature on admission being 96.8, T-max 98.4 and at discharge was 96.5. Blood pressure initially on admission was 135/79. He did show some mild hypertension at times with extreme pain, but at discharge, he was 146/88. Heart rate was variable depending on the patient's pain control and at time of discharge was 105 although the patient was fairly well controlled on his pain level. Given that he had some elevated blood pressures at time, he was started on lisinopril and at discharge was started on metoprolol to help control his rate. His diet was controlled by dietitian and despite close monitoring and assistance, the patient continued to go to the [employer] multiple times to assist himself in his own nutritional plan. He was slowly titrated off his Dilaudid and titrated onto the Animas. The patient was started on Flagyl and Levaquin which were continued through his entire hospitalization. He did show improvement after initiation of antibiotic therapy as well as Solu-Medrol. At time of discharge, the patient was able to be discharged and continue with pain control per his neurologist who provides a pain contact. On the morning of discharge, the patient was requesting to be discharged as he felt much better. Therefore, he was discharged in stable condition. PLAN: The patient is discharged for continuation of followup with his primary care providers, his neurologist, as well as in [place]. He was to call both providers to schedule followup appointments. He was encouraged to resume his home medications as directed prior to admission and encouraged to have a low residual diet. He was encouraged to drink plenty of fluids to prevent dehydration and take his pain medicine was prescribed as well as contact his neurologist for further management of his pain. He was told he can take Tylenol as well, but no NSAIDs and to return to the hospital should he have return of symptoms. At discharge, he was provided new prescriptions to include: 1. Align 4 mg 3 times daily, #60. 2. Flagyl 500 mg q.8h., #21. 3. Levaquin 500 mg daily, #7. 4. Medrol Dosepak 4 mg to take as directed, #1 pack. 5. Metoprolol succinated extended release 25 mg daily, #30. 6. Phenergan tablets 25 mg q.6h. as needed, #15. 7. Lisinopril 10 mg daily, #30. Diet at discharge: Low residual. Activity: Increase as tolerated. Condition at discharge: Stable. #[id number] [facility]
== END 2017-01-07 14:00 | disposition home or self-care (01) | DRG 386 ==
LOC: ER 03:09 → MS 10:12
PROVIDERS: ADMIT Nurse Practitioner Acute Care; ATTEND Nurse Practitioner Family
PROC: BW21YZZ Computerized Tomography (CT Scan) of Abdomen and Pelvis using Other Contrast (ICD-10-PCS; principal; 2017-01-01)
DX: K50.918 Crohn's disease, unspecified, with other complication (principal); K92.1 Melena; R11.2 Nausea with vomiting, unspecified; R19.7 Diarrhea, unspecified; G62.9 Polyneuropathy, unspecified; I10 Essential (primary) hypertension; G89.29 Other chronic pain; M54.9 Dorsalgia, unspecified; K21.9 Gastro-esophageal reflux disease without esophagitis; G47.00 Insomnia, unspecified; F32.9 Major depressive disorder, single episode, unspecified; F41.9 Anxiety disorder, unspecified; F50.89 Other specified eating disorder; M48.00 Spinal stenosis, site unspecified; Z86.711 Personal history of pulmonary embolism; Z88.6 Allergy status to analgesic agent; Z88.5 Allergy status to narcotic agent; Z90.49 Acquired absence of other specified parts of digestive tract; Z79.891 Long term (current) use of opiate analgesic; Z68.23 Body mass index [BMI] 23.0-23.9, adult

== ENCOUNTER → 2017-11-23 | Outpatient (CLI) | payer OTHER | LOC: LAB.O 14:53 | PROVIDERS: ATTEND Nurse Practitioner Family | DX: R11.11 Vomiting without nausea (principal); E29.1 Testicular hypofunction ==

== ENCOUNTER 2017-11-26 18:52 | Inpatient (IN) | payer OTHER ==
[2017-11-26] MEDS ORDERED: ALUM & MAG HYDROX-SIMETHICONE 30 ML, LIDOCAINE VISCOUS 2% 15 ML PO ONE ×2 (19:16)
[2017-11-26] MEDS ORDERED: LIDOCAINE HCL 2% (MOUTH-THROAT) 15 ML UD ONE (19:18)
[2017-11-26] MEDS ORDERED: ONDANSETRON ODT 8 MG TAB SL ONE (19:18)
[2017-11-26] MEDS ORDERED: ALUM & MAG HYDROX-SIMETHICONE 30 ML UD ONE (19:18)
[2017-11-26] MEDS ORDERED: ONDANSETRON ODT 8 MG TAB ONE (19:19)
--- NOTE | 2017-11-26 19:43 | RAD ---
EXAM DESCRIPTION: Abdomen Series CLINICAL HISTORY: 47 years, Male, Crohn's flare COMPARISON: Abdominal series dated 01/07/2017 FINDINGS: Three views including chest radiograph were performed. The lungs are moderately well expanded and clear. The costophrenic sulci are sharp. No pneumoperitoneum is identified. There is no gaseous distention of bowel. Air-fluid levels continue into the distal colon. No gaseous distention of the small bowel. The RIGHT lobe of the liver is elongated. Surgical clips are redemonstrated along the RIGHT hemiabdomen. Vascular calcifications are mild. Findings are similar to the prior study. IMPRESSION: Fluid continues into the distal colon. This is an abnormal but nonspecific finding that can be seen in the setting of any cause of colonic ileus or diarrheal state state. No evidence of bowel obstruction. Electronically signed by: Ginger Pradhan MD 11/26/2017 7:42 PM [facility]
[2017-11-26] MEDS ORDERED: methylPREDNISolone SODIUM SUC 125 MG/2 ML VIAL IV ONE (19:46)
[2017-11-26] MEDS ORDERED: PANTOPRAZOLE SODIUM IV 40 MG VIAL IV ONE (19:46)
[2017-11-26] MEDS ORDERED: PROMETHAZINE HCL INJ 25 MG/ML VIAL ONE (20:09)
[2017-11-26] MEDS ORDERED: PROMETHAZINE HCL INJ 25 MG in SODIUM CHLORIDE 0.9% 50ML 50 ML IVPB ONE (20:10)
[2017-11-26] MEDS ORDERED: SODIUM CHLORIDE 0.9% 50ML 50 ML ONE (20:11)
[2017-11-26] MEDS ORDERED: SODIUM CHLORIDE 0.9% 1000ML 1,000 ML ONE (20:13)
[2017-11-26] MEDS ORDERED: SODIUM CHLORIDE 0.9% 1000ML 1,000 ML IVS ONE ×3 (20:15→23:14)
[2017-11-26] MEDS ORDERED: MORPHINE SULFATE INJ 10 MG/ML VIAL IV ONE ×2 (20:53→22:03)
[2017-11-26] MEDS ORDERED: PIPERACILLIN/TAZOBACTAM 3.375 GM in SODIUM CHLORIDE 0.9% 100ML 100 ML IVPB ONE (20:53)
[2017-11-26] MEDS ORDERED: PIPERACILLIN/TAZOBACTAM 3.375 GM VIAL IVPB ONE (20:55)
[2017-11-26] MEDS ORDERED: SODIUM CHLORIDE 0.9% 100ML 100 ML IVPB ONE (20:56)
--- NOTE | 2017-11-26 21:06 | ED.PDOC ---
History of Present Illness - General Chief Complaint: Chest Pain/MO Stated Complaint: Chest pressure, bloody stools Time Seen by Provider: 11/26/17 19:07 Source: patient Exam Limitations: no limitations - History of Present Illness Initial Comments: the patient is a 47-year-old male presenting to the emergency room with what he believes to be a Crohn's flare. The patient reports that he has been having a flare for the last month or so and has been doing a low-dose intermittent steroid dosage. He also takes Humira. He was diagnosed with Crohn 's more than 30 years ago. He has had 4 abdominal surgeries. He has been having some intermittent nausea and vomiting. He has some epigastric discomfort and some right sided discomfort as well. No definite fevers. He is followed by Dr. Lopez and Dr. Hightower. He reports passing several bloody stools yesterday. No syncope or near syncope. No history of any cancer. He does take chronic daily opiates for back pain. Timing/Duration: unsure Severity: moderate Improving Factors: nothing Worsening Factors: nothing Associated Symptoms: loss of appetite, malaise, nausea/vomiting Allergies/Adverse Reactions: Allergies NSAIDs Allergy (Verified 11/26/17 19:02) doesn't take NSAIDS due to Chrohn's Disease Home Medications: Ambulatory Orders ALPRAZolam [Xanax] 0.5 mg PO TID 01/01/17 Diphenoxylate/Atropine [Lomotil Tab] 2.5 mg PO PRN 01/01/17 Duloxetine HCl [Cymbalta] 60 mg PO BID 01/01/17 HYDROcodone 10MG/APAP 325MG [[place] 10/325] 1 ea PO TID 01/01/17 Hyoscyamine Sulfate [Symax Duotab] 0.375 mg PO BID 01/01/17 Zolpidem Tartrate [Ambien] 10 mg PO BEDTIME PRN 01/01/17 Bifidobacterium Infantis [Align] 4 mg PO TID #60 cap 01/07/17 Lisinopril [Prinivil] 10 mg PO DAILY #30 tab 01/07/17 Promethazine Tab [Phenergan Tablet] 25 mg PO Q6H PRN #15 tab 01/07/17 Review of Systems - Review of Systems Constitutional: States: malaise EENTM: States: no symptoms reported Respiratory: States: no symptoms reported Cardiology: States: no symptoms reported Gastrointestinal/Abdominal: States: abdominal pain, diarrhea, nausea Genitourinary: States: no symptoms reported Musculoskeletal: States: see HPI Skin: States: no symptoms reported Neurological: States: no symptoms reported Endocrine: States: no symptoms reported All other Systems: No Change from Baseline Past Medical History (General) - Patient Medical History Hx Seizures: No Hx Stroke: No Hx Asthma: No Hx of COPD: No Hx Congestive Heart Failure: No Hx Pacemaker: No Hx Hypertension: Yes Hx Diabetes: No Hx Gastroesophageal Reflux: Yes Hx MRSA: No Surgical History: appendectomy, colectomy, other - Vaccination History Hx Tetanus, Diphtheria Vaccination: Yes Hx Influenza Vaccination: No Hx Pneumococcal Vaccination: No - Social History Hx Tobacco Use: No Hx Alcohol Use: No Hx Substance Use: No Hx Physical Abuse: No Hx Emotional Abuse: No Family Medical History - Family History Grandparents Family History: Unknown Cause of : cancer Hx Family;Other: Father had a recent bypass Physical Exam - Physical Exam General Appearance: Alert Eye Exam: bilateral normal Ears, Nose, Throat: hearing grossly normal, normal ENT inspection, normal pharynx Neck: full range of motion, supple Respiratory: lungs clear, normal breath sounds, no respiratory distress, no accessory muscle use Cardiovascular/Chest: normal peripheral pulses, regular rate, rhythm, no edema Peripheral Pulses: radial,right: 2+, radial,left: 2+, dorsalis pedis,right: 2+, dorsalis pedis,left: 2+ Gastrointestinal/Abdominal: soft, other - no definite focal rebound or peritoneal signs but he does have some diffuse discomfort in the epigastric and right side of his abdomen. Scars are noted from previous surgeries. 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 He has been started on IV Solu-Medrol with his first dose 125 mg. For nausea and vomiting he has received some Zofran and Phenergan. He has received a liter of IV fluids. He is receiving IV Zosyn for the possibility of underlying infection on top of his Crohn's. White blood cell count is elevated today however this may at least partially be due to recent steroid usage. A C. difficile study is pending on the patient. A urinalysis is yet to be collected. A blood culture has been performed. Laboratory work is otherwise reassuring. A CT scan of his abdomen and pelvis shows no evidence of perforation, abscess formation or obstruction. He has also received some Protonix. He is requiring significant IV pain medications. He does see Dr. Lopez and apparently Dr. Hightower. Admit for management of Crohn's flare.he did have some rectal bleeding yesterday however none today. His vital signs and hemoglobin are stable. 11/26/17 21:24 - Results/Orders Results/Orders: Laboratory Tests 11/26/17 11/26/17 11/26/17 19:45 19:45 19:45 WBC 17.2 H RBC 5.15 Hgb 15.3 Hct 45.7 MCV 88.7 MCH 29.7 MCHC 33.5 RDW 14.3 Plt Count 343 MPV 6.8 L Absolute Neuts (auto) 13.40 H Absolute Lymphs (auto) 2.50 Absolute Monos (auto) 1.10 H Absolute Eos (auto) 0.10 Absolute Basos (auto) 0.10 Neutrophils % 78.2 H Lymphocytes % 14.3 L Monocytes % 6.5 Eosinophils % 0.6 L Basophils % 0.4 PT 10.0 INR 0.880 PTT (SP) 20.0 L Sodium 137 Potassium 3.4 L Chloride 102 Carbon Dioxide 27 Anion Gap 11.4 L BUN 13 Creatinine 0.99 BUN/Creatinine Ratio 13.1 Random Glucose 83 Serum Osmolality 273.1 L Lactic Acid Calcium 9.3 Total Bilirubin 0.5 AST 47 H ALT 74 H Alkaline Phosphatase 55 Creatine Kinase 169 CK-MB (CK-2) 3.2 CK-MB (CK-2) % Not Reportable Troponin I < 0.02 B-Natriuretic Peptide 7.6 Serum Total Protein 7.0 Albumin 4.1 Globulin 2.9 Albumin/Globulin Ratio 1.4 Amylase 44 Lipase 32 11/26/17 19:45 WBC RBC Hgb Hct MCV MCH MCHC RDW Plt Count MPV Absolute Neuts (auto) Absolute Lymphs (auto) Absolute Monos (auto) Absolute Eos (auto) Absolute Basos (auto) Neutrophils % Lymphocytes % Monocytes % Eosinophils % Basophils % PT INR PTT (SP) Sodium Potassium Chloride Carbon Dioxide Anion Gap BUN Creatinine BUN/Creatinine Ratio Random Glucose Serum Osmolality Lactic Acid 2.0 Calcium Total Bilirubin AST ALT Alkaline Phosphatase Creatine Kinase CK-MB (CK-2) CK-MB (CK-2) % Troponin I B-Natriuretic Peptide Serum Total Protein Albumin Globulin Albumin/Globulin Ratio Amylase Lipase EKG shows mild sinus tachycardia at a rate of 101 bpm. [place] is normal. No acute ST segment changes concerning for ischemia. Acute abdominal series shows no evidence of obstruction or free air. Slightly abnormal fluid levels in the distal colon however appear to be long-standing given surgeries. Departure - Departure Clinical Impression: Crohn's colitis Qualifiers: Digestive disease complication type: with rectal bleeding Qualified Code(s): K50.111 - Crohn's disease of large intestine with rectal bleeding Disposition: Admit Patient Referrals: OBDULIA CHRISTINE IV, FEED MANAGER [Primary Care Provider] - 1-2 Weeks Home Medications: Ambulatory Orders ALPRAZolam [Xanax] 0.5 mg PO TID 01/01/17 Diphenoxylate/Atropine [Lomotil Tab] 2.5 mg PO PRN 01/01/17 Duloxetine HCl [Cymbalta] 60 mg PO BID 01/01/17 HYDROcodone 10MG/APAP 325MG [[place] 10/325] 1 ea PO TID 01/01/17 Hyoscyamine Sulfate [Symax Duotab] 0.375 mg PO BID 01/01/17 Zolpidem Tartrate [Ambien] 10 mg PO BEDTIME PRN 01/01/17 Bifidobacterium Infantis [Align] 4 mg PO TID #60 cap 01/07/17 Lisinopril [Prinivil] 10 mg PO DAILY #30 tab 01/07/17 Promethazine Tab [Phenergan Tablet] 25 mg PO Q6H PRN #15 tab 01/07/17 Decision To Admit - Decistion To Admit Decision to Admit Reason: Medical Nature Decision to Admit Date: 11/26/17 Decision to Admit Time: 21:24
--- NOTE | 2017-11-26 21:09 | CT ---
EXAM DESCRIPTION: Abdomen/Pelvis w/Contrast CLINICAL HISTORY: crohns, bloody stool, vomiting COMPARISON: None Available TECHNIQUE: Contiguous axial images of the abdomen and pelvis were obtained after the administration of intravenous contrast followed by reconstruction images.This exam was performed according to our departmental dose-optimization program, which includes automated exposure control, adjustment of the mA and/or kV according to patient size and/or use of iterative reconstruction technique. FINDINGS: There is fatty infiltration of the liver. The gallbladder is surgically absent. There are surgical changes of the bowel. No significant bowel wall thickening or evidence of obstruction. There is a small hiatal hernia. There is no hydronephrosis. Adrenal glands are within normal limits. Aorta is normal in caliber and tapering. No significant free fluid. No free air. There is no stranding of the mesenteric fat. IMPRESSION: No acute intra-abdominal abnormality Electronically signed by: Cheo Orosco 11/26/2017 9:09 PM BOOM OPERATOR
--- NOTE | 2017-11-26 21:46 | HP ---
SUPERVISING PHYSICIAN: Xavier Hightower MD CHIEF COMPLAINT: Abdominal pain. HISTORY OF PRESENT ILLNESS: Mr. Angel is a 47-year-old, male patient with a history of Crohn's disease. He presented to the Emergency Department today complaining of what he felt was a flare-up of his Crohn's disease. He noted he had been having a flare-up on an off for the last month and actually had been on low-dose intermittent steroids as well as being on Humira. His last flare-up was in December of 2016. He was diagnosed at a young age, well over 30 years previously and has had four abdominal surgeries due to complications. He noted he had been having some intermittent nausea and vomiting with some epigastric discomfort and more right-sided lower quadrant discomfort. He denied any fever, chills but noted he had a bloody stool yesterday but had not had any since that time. He is followed closely by Dr. Lopez. In the Emergency Room, initial workup included abdominal x-ray, CT of the abdomen and pelvis with contrast that per radiology interpretation showed no acute intraabdominal abnormalities. Laboratory studies showed he had a leukocytosis of 17,200 with a left shift. His chemistries showed a mildly low potassium at 3.4, otherwise electrolytes were within normal limits. Liver functions showed an elevation of his AST and ALT but normal bilirubin and alkaline phosphatase. Cardiac enzymes showed to be within normal limits as well as pancreatic enzymes. Given his clinical symptoms and history, leukocytosis and likely an acute flare- up of his Crohn's disease, Dr. Sal, Emergency Room physician, requested the patient be admitted for further treatment and evaluation. The patient is now going to be admitted to the medical/surgical floor. He is admitted in stable condition. PAST MEDICAL HISTORY: 1. Crohn's disease. 2. Spinal stenosis. 3. Neuropathy. 4. Past history of pulmonary embolism 5. Hypertension on lisinopril but taking Adderall.. 6. Neck and lumbar fracture. 7. Chronic back pain. 8. Insomnia. 9. Depression with anxiety. PAST SURGICAL HISTORY: 1. Colon resection times 4. 2. Cholecystectomy. 3. Appendectomy. OUTPATIENT MEDICATIONS: 1. Adderall 20 mg b.i.d. 2. Ambien 10 mg at bedtime p.r.n. 3. Humira 40 mEq subcu monthly. 4. Apriso 1.5 mg daily. 5. Lomotil 5 mg at bedtime. 6. Lomotil 7.5 mg twice a day, at 7o'clock and at 1400. 7. Colestipol 1 gram b.i.d. 8. Xanax 1 mg daily. 9. Xanax 1 mg at bedtime. 10. Cymbalta 60 mg b.i.d. 11. [place] 10/325, one every 3 hours as needed. 12. Lisinopril 10 mg daily. ALLERGIES: NSAIDs, [place] AND MORPHINE. FAMILY HISTORY: Noncontributory. SOCIAL HISTORY: The patient lives in [place], works in the [employer] industry. He denies any tobacco, alcohol or illicit drug use. REVIEW OF SYSTEMS: GENERAL: Positive for fatigue but no unintentional weight loss, and general malaise. Denies fevers or chills. HEENT: Denies sinus symptoms, ear pain, sore throat or nasal congestion. RESPIRATORY: Denies coughing, shortness of breath or wheezing. CARDIAC: Denies chest pain, palpitations, syncopal episodes. GASTROINTESTINAL: Positive for abdominal pain, diarrhea and nausea as noted in history of present illness. He also notes he has abdominal pain more located in the right lower quadrant over what he feels like was his previous anastomosis site from his last colon resection. GENITOURINARY: Denies hematuria, dysuria or nocturia or other urinary symptoms. NEUROLOGIC: Denies headaches, dizziness or seizures or syncopal episodes. PHYSICAL EXAMINATION: VITAL SIGNS: The patient is afebrile on admission with a temperature of 98.7. Pulse 114, blood pressure 137/79, respirations 22, saturation 95% on room air. Admission weight 83.9 kg. GENERAL: The patient is alert, appears to be in no acute distress but does appear ill. HEENT: Tympanic membranes clear, oropharynx pink with dry mucous membranes. Posterior pharynx without redness, erythema or lesions. NECK: Supple, non-tender with full range of motion. CHEST: Lungs clear to auscultation without rhonchi, rales, or wheezes. CARDIOVASCULAR: Regular rate and rhythm without appreciable murmurs, rubs, or gallops. ABDOMEN: Soft, no rebound or peritoneal signs noted but he does have some diffuse tenderness, both epigastric right-sided abdomen. He has multiple scars from previous surgeries. EXTREMITIES: No cyanosis, clubbing, or edema. NEUROLOGIC: He is alert and oriented x 3. Cranial nerves II through XII are grossly intact. LABORATORY: CBC on admission showed a leukocytosis of 17,200 with hemoglobin of 15.3, hematocrit 45.7, platelet count 343,000, differential did show a left shift. Coagulation studies showed a PT of 10, PTT 20. Chemistries showed a potassium of 3.4, otherwise electrolytes were within normal limits. BUN 13, creatinine 0.99, glucose 83, calcium 9.0. Lactic 2.0, liver functions showed normal bilirubin at 0.5 but AST was slightly elevated at 47 as well as ALT of 74. Alkaline phosphatase was normal at 55. Troponin less than 0.02. Amylase and lipase were both normal. Urinalysis showed to be within normal limits. MICROBIOLOGY: Blood cultures are pending. Stool cultures and C-diff pending. RADIOLOGY: Initially had abdominal x-ray in the Emergency Department and per radiology interpretation of 2-view abdomen was noted fluid within the distal colon. No evidence of bowel obstruction. This was followed up with abdominal and pelvic CT with contrast and per radiology interpretation, fatty infiltration is noted in the liver. The gallbladder was surgically absent. There were surgical changes noted of the bowel but no significant bowel wall thickening or evidence of obstruction. There was a small hiatal hernia, no hydronephrosis. No stranding of mesenteric fat. Essentially no acute intraabdominal abnormalities per radiology interpretation. ASSESSMENT: 1. Abdominal pain with history of Crohn's disease and on Humira with a leukocytosis and ongoing abdominal pain with some nausea and vomiting more likely secondary to acute flare-up of his Crohn's disease requiring admission for initiation of corticosteroids and antibiotics. 2. Status post multiple bowel resection times 4 with last one being August secondary to complications from Crohn's disease. 3. Nausea and vomiting secondary to #1. 4. Diarrhea with some hematochezia likely related to flaure-up of Crohn's disease versus possible infectious colitis with stool studies pending. 5. Electrolyte imbalance with a mild hypokalemia likely secondary to current nausea, vomiting, diarrhea. 6. Elevated liver enzymes with a normal bilirubin likely from chronic medications exacerbated by underlying dehydration. 7. Moderate dehydration secondary to nausea, vomiting, diarrhea and poor oral intake. 8. Anxiety and depression. 9. Chronic pain and spinal stenosis on chronic pain medication. PLAN: The patient is going to be admitted to the medical/surgical floor for further treatment and evaluation with concerns for Crohn's disease flare-up versus infectious colitis. He was given Solu-Medrol 125 mg and this will be continued for 125 mg every 6 hours for 3 more doses and then taper needed. We will provide pain control with Dilaudid, antiemetics with Zofran and Phenergan and keep him n.p.o. He will be on IV fluids after a 2-liter bolus of saline that will include D5 half normal saline and 20 of potassium to run at 125 per hour for at least the next 12 to 24 hours. Given that he is closely followed by Dr. Lopez, I will touch base tomorrow with the GI group in [place] with whoever is chief construction inspector to discuss his case and will start him on recommendations on treatment plan. Until then, we will continue with antibiotics to include Levaquin and Flagyl and await stool studies including cultures and C-diff. Will resume his home medications once they have been updated and verified. We will start him on DVT prophylaxis with Lovenox given that he has a history of previous pulmonary embolism and chronic inflammatory bowel disease process with close monitoring for any acute bleeding given that he had some visible blood in his last stools. Will anticipate his length of stay to be at least 2 to 3 days, possibly more. As he improves and no longer having pain, certainly we will taper his pain medication off as well as steroids down and advance his diet as tolerated. Until discharge, we will continue to monitor him closely and treat appropriately. #[id number] [facility]
[2017-11-26] MEDS ORDERED: ONDANSETRON INJ 4 MG/2 ML VIAL IV PRN (22:32)
[2017-11-26] MEDS ORDERED: ACETAMINOPHEN 325 MG TAB PO PRN (22:34)
[2017-11-26] MEDS ORDERED: SODIUM CHLORIDE 0.9% (FLUSH) 10 ML SYG IV PRN (22:34)
[2017-11-26] MEDS ORDERED: NON-FORMULARY MEDICATION 1 EA MIS (Duloxetine Hcl [Cymbalta] 60 MG) PO SCH (22:45)
[2017-11-26] MEDS ORDERED: IV SET AND CAP CHANGE INJ INJ SCH (23:00)
[2017-11-26] MEDS ORDERED: levoFLOXacin 500MG IV 500 MG in PREMIX BAG 1 BAG IVPB SCH (23:00)
[2017-11-26] MEDS ORDERED: HYOSCYAMINE SULFATE 0.125 MG TAB ONE (23:20)
[2017-11-26] MEDS ORDERED: DULoxetine HCL 30 MG CAP PO ONE (23:20)
[2017-11-26] MEDS ORDERED: metroNIDAZOLE IV PREMIX 500MG 100 ML IVPB ONE (23:21)
[2017-11-26] MEDS: metroNIDAZOLE IV PREMIX 500MG 500 MG in PREMIX BAG 1 BAG IVPB SCH (23:35)
[2017-11-26] MEDS: HYOSCYAMINE SULFATE 0.375 MG PO SCH (23:35)
[2017-11-26] MEDS: ALPRAZolam 0.5 MG TAB PO SCH (23:37)
[2017-11-26] MEDS: HYDROmorphone HCL INJ 2 MG/ML VIAL IV PRN (23:40)
[2017-11-26] MEDS ORDERED: ENOXAPARIN SODIUM 40 MG/0.4 ML SYG SUBCU SCH (23:45)
--- NOTE | 2017-11-26 23:57 | PCM.CORE ---
Physician DVT/VTE - Nurse DVT Assessment & Total Each Risk Factor Represents 3 Points: Hx of DVT/PE Each Risk Factor is 1 Point: Hx of Inflammatory Bowel Disease DVT Assessment Score: 4 - 3-4 High Risk Treatments: Early Ambulation *, Sequential Compression Device Pharmacological: Enoxaparin 40 mg SQ Daily
[2017-11-27] MEDS: KCL 20MEQ/D5 1/2NS 1,000 ML IVS PRN ×3 (00:04→23:42)
[2017-11-27] MEDS ORDERED: levoFLOXacin 500MG IV 100 ML IVPB ONE ×2 (00:08→20:06)
[2017-11-27] MEDS ORDERED: PROMETHAZINE HCL INJ 25 MG/ML VIAL ONE ×4 (00:23→19:55)
[2017-11-27] MEDS ORDERED: SODIUM CHLORIDE 0.9% 50ML 50 ML ONE ×4 (00:25→19:57)
[2017-11-27] MEDS: PROMETHAZINE HCL INJ 25 MG in SODIUM CHLORIDE 0.9% 50ML 50 ML IVPB PRN ×5 (00:39→22:42)
[2017-11-27] MEDS: methylPREDNISolone SODIUM SUC 125 MG/2 ML VIAL IV SCH ×3 (03:54→13:33)
[2017-11-27] MEDS: HYDROmorphone HCL INJ 2 MG/ML VIAL IV PRN ×6 (03:55→23:36)
[2017-11-27] MEDS ORDERED: PANTOPRAZOLE SODIUM IV 40 MG VIAL IV SCH (06:30)
[2017-11-27] MEDS ORDERED: metroNIDAZOLE IV PREMIX 500MG 100 ML IVPB ONE ×3 (07:08→19:56)
[2017-11-27] MEDS ORDERED: DULoxetine HCL 30 MG CAP PO ONE (07:08)
[2017-11-27] MEDS: metroNIDAZOLE IV PREMIX 500MG 500 MG in PREMIX BAG 1 BAG IVPB SCH ×3 (07:23→23:22)
[2017-11-27] MEDS ORDERED: ALPRAZolam 0.5 MG TAB PO PRN (07:46)
[2017-11-27] MEDS: DULoxetine HCL 30 MG CAP PO SCH ×2 (08:41→21:06)
[2017-11-27] MEDS: BIFIDOBACTERIUM INFANTIS 4 MG CAP PO SCH ×3 (08:41→21:06)
[2017-11-27] MEDS: AMPHETAMINE DEXTROAMPHETAMINE PO SCH ×2 (08:45→21:45)
[2017-11-27] MEDS: HYOSCYAMINE SULFATE 0.375 MG PO SCH ×2 (08:46→21:45)
[2017-11-27] MEDS: SODIUM CHLORIDE 0.9% (FLUSH) 10 ML SYG IV SCH ×2 (08:47→21:07)
[2017-11-27] MEDS: ALPRAZolam 0.5 MG TAB PO SCH ×3 (08:57→21:06)
[2017-11-27] MEDS ORDERED: MESALAMINE 1.5 GM PO SCH (09:00)
[2017-11-27] MEDS ORDERED: LISINOPRIL 10 MG TAB PO SCH (09:00)
--- NOTE | 2017-11-27 09:44 | RAD ---
Procedure: XR ABDOMEN 2 VIEWS SUPINE ERECT Exam Date: 11/27/2017 8:36 AM SUEDING AND BUFFING MACHINE OPERATOR Ordering Provider: Marcelo Baker NP Clinical Indication: Crohn's flare Comparison: CT November 26, 2017 Findings: Bowel gas pattern is non-obstructive. No pneumoperitoneum. There is moderate volume stool burden. Surgical clips are seen in the right hemiabdomen. Postoperative changes are seen in the right lower quadrant. Impression: Nonobstructive bowel gas pattern. Electronically signed by: Nate Carrera MD 11/27/2017 9:43 AM SUEDING AND BUFFING MACHINE OPERATOR
--- NOTE | 2017-11-27 14:53 | PN ---
DATE: 11/27/17 SUPERVISING PHYSICIAN: Xavier Hightower MD SUBJECTIVE: The patient continues to have a significant amount of pain in his abdomen but has had good control with Dilaudid. He has had no nausea, vomiting ordinary since admission. He has been utilizing Phenergan in conjunction with the Dilaudid. He has been afebrile since admission. He does remain n.p.o. on bowel rest. OBJECTIVE: VITAL SIGNS: Temperature 98.6, pulse 70, blood pressure 111/70, respirations 19 , saturation 98% on room air. I&O shows positive balance of 36 with 212 in and 175 out. Weight is 82.8 kg. CHEST: Lungs are clear to auscultation. HEART: Regular rate and rhythm . ABDOMEN: Soft and diffusely tender but no rebound tenderness with more point tenderness on palpation to the right lower quadrant. Bowel sounds are positive. EXTREMITIES: No cyanosis, clubbing, or edema. NEUROLOGIC: Alert and oriented x 3. LABORATORY: White count remains elevated at 17,400 with hemoglobin now down to 13.5, hematocrit 40.5, platelet count 326,000. Differential continues to show a left shift. His sed rate was normal at 1. Chemistries show normal electrolytes today with potassium 4.6, BUN 13, creatinine 0.78. Glucose 155, calcium 7.8. Liver functions continue to show elevation but slightly improvement since admission with AST down to 43 and ALT at 73. His C-reactive protein was normal at 0.6. Urinalysis was within normal limits last night. MICROBIOLOGY: Stool cultures are still pending. C-diff is pending. Blood cultures remain negative since admission. RADIOLOGY: Repeat abdominal series this morning per radiology interpretation shows nonobstructive bowel gas pattern. ASSESSMENT: 1. Abdominal pain with history of Crohn's disease and on Humira with a leukocytosis on admission and ongoing abdominal pain with some nausea and vomiting felt to be secondary to an acute flare-up of his Crohn's disease requiring admission for initiation of corticosteroids and antibiotics and bowel rest. 2. Status post multiple bowel resection times 4 with last one being August secondary to complications from Crohn's disease. 3. Nausea and vomiting secondary to #1 showing some improvement since admission. 4. Diarrhea prior to admission with some hematochezia felt to be likely related to flare-up of Crohn's disease versus questionable infectious colitis with stool studies pending with patient having no diarrhea since admission. 5. Electrolyte imbalance with a mild hypokalemia likely secondary to nausea, vomiting and diarrhea.showing improvement with IV replacement and IV fluids. 6. Elevated liver enzymes with a normal bilirubin felt to be from chronic medication usage with exacerbation by underlying dehydration. 7. Moderate dehydration secondary to nausea, vomiting, diarrhea and poor oral intake improving with IV fluids. 8. Anxiety and depression on antidepressants and benzodiazepines. 9. Chronic pain with spinal stenosis on chronic pain medication to include [place]. PLAN: Will continue bowel rest and Flagyl and Levaquin for antibiotic coverage. He was given a total of 500 mg Solu-Medrol with 125 mg every 6 hours. His steroids will be tapered down to 40 mg every 8 hours for the next 24 hours x3 doses. He is still requiring quite a bit of pain management with Dilaudid and Phenergan. Will continue managing as appropriate. I have not talked to GI yet and after discussion with the patient, the patient sees Dr. Lopez who actually will be in clinic this coming week. Given that the patient is showing to be stable and responding to treatment, address following up with Dr. Lopez in the morning unless he is metal bonding press operator today to discuss any further treatment recommendations. Until then, we will continue to provide bowel rest, antibiotics and fluids if needed. Will await culture studies and treat appropriately based off those findings. He continues on DVT prophylaxis. He has had had no additional bloody stools since admission. Will anticipate at least another 48 hours of aggressive pain management and fluids and once the patient is showing stabilization, certainly we will be able to advance his diet. Again, will talk to Dr. Lopez as soon as possible, either today or tomorrow. Until discharge, we will continue to monitor him closely and treat appropriately. #[id number] [facility]
[2017-11-27] MEDS ORDERED: HYOSCYAMINE SULFATE 0.125 MG TAB ONE (20:35)
[2017-11-27] MEDS ORDERED: ENOXAPARIN SODIUM 40 MG/0.4 ML SYG SUBCU SCH (21:00)
[2017-11-27] MEDS ORDERED: methylPREDNISolone SODIUM SUC 40 MG/ML VIAL IV SCH (22:00)
[2017-11-28] MEDS ORDERED: levoFLOXacin 500MG IV 500 MG in PREMIX BAG 1 BAG IVPB SCH
[2017-11-28] MEDS ORDERED: PROMETHAZINE HCL INJ 25 MG/ML VIAL ONE (02:51)
[2017-11-28] MEDS ORDERED: SODIUM CHLORIDE 0.9% 50ML 0 ML ONE (02:52)
[2017-11-28] MEDS: HYDROmorphone HCL INJ 2 MG/ML VIAL IV PRN (03:04)
[2017-11-28 03:42] VITALS: BP 113/72; TEMP 98.4; O2SAT 95
[2017-11-28] MEDS ORDERED: metroNIDAZOLE IV PREMIX 500MG 0 ML IVPB ONE (05:09)
[2017-11-28] MEDS ORDERED: DIPHENOXYLATE HCL/ATROPINE 2.5 MG TAB ONE (05:11)
[2017-11-28] MEDS ORDERED: DIPHENOXYLATE HCL/ATROPINE 2.5 MG TAB PO SCH ×3 (07:00→21:00)
--- NOTE | 2017-12-05 10:00 | DS ---
SUPERVISING PHYSICIAN: Ap Sal MD DISCHARGE DIAGNOSES: 1. Abdominal pain with history of Crohn's disease and on Humira with a leukocytosis on admission and ongoing abdominal pain with some nausea and vomiting felt to be secondary to an acute flare-up of his Crohn's disease requiring admission for initiation of corticosteroids and antibiotics and bowel rest. 2. Status post multiple bowel resection times 4 in the last several years with last one being August secondary to complications from Crohn's disease. 3. Nausea and vomiting secondary to #1 showing some improvement since admission. 4. Diarrhea prior to admission with some hematochezia felt to be secondary to flare-up of Crohn's disease versus questionable infectious colitis with stool studies pending at discharge with patient having no diarrhea. 5. Electrolyte imbalance with a mild hypokalemia likely secondary to nausea, vomiting and diarrhea.showing improvement with IV replacement and IV fluids. 6. Elevated liver enzymes with a normal bilirubin felt to be chronic medication usage with exacerbation of underlying dehydration. 7. Moderate dehydration secondary to nausea, vomiting, diarrhea and poor oral intake improving with fluids. 8. Anxiety and depression on antidepressants and benzodiazepines. 9. Chronic pain with spinal stenosis on chronic pain medication to include Bellona. REASON FOR HOSPITALIZATION: Mr. Angel is a 47-year-old, male patient with a history of Crohn's disease. He presented to the Emergency Department on 11/26/17 complaining of what he felt was a flare-up of his Crohn's disease. He noted he had been having a flare-up on an off for the last month and actually had been on low-dose intermittent steroids as well as being on Humira. His last flare-up was in December of 2016. He was diagnosed at a young age, well over 30 years previously and has had four abdominal surgeries due to complications. He noted he had been having some intermittent nausea and vomiting with some epigastric discomfort and more right-sided lower quadrant discomfort. He denied any fever, chills but noted he had a bloody stool on the day prior to admission but had not had any since that time. He is followed closely by Dr. Lopez. In the Emergency Room, initial workup included CT of the abdomen and pelvis with contrast that per radiology interpretation showed no acute intraabdominal abnormalities. Laboratory studies showed he had a leukocytosis of 17,200 with a left shift. His chemistries were essentially unremarkable. Liver functions showed a slight elevation of his AST and ALT but normal bilirubin and alkaline phosphatase. Cardiac enzymes showed to be within normal limits as well as pancreatic enzymes. Given his clinical symptoms and history, leukocytosis and likely an acute flare- up of his Crohn's disease, Dr. Sal, Emergency Room physician, requested the patient be admitted for further treatment and evaluation. The patient is was admitted to the medical/surgical floor in stable condition. LABORATORY STUDIES; White count on admission was 17,200, at discharge was 21, 900. Hemoglobin 13.0 with hematocrit 30.1 and discharge platelet count was 324, 000. Differential did show a persistent left shift but no increased bands. His sed rate was normal at1. Coagulation studies showed a normal PT/PTT that was slightly low at 20. Chemistries, initially showed potassium low at 3.4, BUN 13, creatinine 0.99 AST 47, ALT 74, alkaline phosphatase normal. Total bilirubin normal. Troponin less than 0.02. C-reactive protein was 0.6. Amylase and lipase were both normal. At discharge electrolytes has normalized. Potassium 4.3, BUN 17, creatinine 0.75, calcium 8.2. Liver functions on the day prior to admission continued to show a slight elevation but some improvement. AST was down to 0.3 ALT down to 73. Urinalysis showed to be within normal limits. MICROBIOLOGY: Blood cultures remained negative after 5 days. RADIOLOGY: He had abdominal x-ray with comparison on 01/07/17 showed continued fluid in the distal colon which was abnormal but nonspecific findings per radiology interpretation that could be seen in the setting of any cause of chronic illness, ileus or diarrheal state. No evidence of bowel obstruction. He also had an abdominal CT/pelvis in the Emergency Department with contrast and per radiology interpretation. There was no acute intraabdominal abnormalities. He had an additional abdominal x-ray on 11/27/17 after admission and per radiology interpretation showed nonobstructive bowel gas pattern. HOSPITAL COURSE: Mr. Angel was admitted from the Emergency Department and started on treatment for flare-up of Crohn's disease as noted above and his history of illness. He was started on steroids initially with 125 Solu-Medrol. This was followed up with scheduled dosage for a total of 500 per day initially. He was started on antibiotics to Levaquin and Flagyl. He was put on bowel rest and n.p.o. status and provided antiemetics and pain management. He was provided fluids, continued dehydration and was showing good clinical response requiring a significant amount of pain management but had not shown any nausea, vomiting, diarrhea. 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 It was discussed with him that although it was understood that he had a family issues, that he would be leaving against medical advice because he was not at this point to be clinically stable to be considered to be discharged safely. He understood this and was advise that if had any worsening symptoms he is to return to the hospital or go to the nearest Emergency Room. I called Dr. Lopez for further management of his condition. PLAN: The patient was discharged against medical advice on 11/28/17. He was given prescriptions to include continued antibiotics with levamisole and Flagyl and a Solu-Medrol Dosepak. He had pain management at home prior to admission. He was encouraged to provide fluids but to advance his diet only as tolerated in the next 24 to 48 hours. He was encouraged to go to the nearest hospital as soon as possible or call Dr. Lopez, return to the hospital here, go to the Emergency Room as soon as he could or if his condition continued to worsen. Discharge diet: n.p.o. status until he had no more abdominal pains, then advance diet as tolerated. Activity: Increase as tolerated, his fluid. Discharge medications: 1. Levaquin 500 mg for 7 days. 2. Medrol Dosepak 4 mg, take as instructed, one pack. 3. Flagyl 500 mg every 8 hours, #21. The patient was again discharged against medical advice in stable condition and advised to see Dr. Lopez as soon as possible. #[id number] [facility]
== END 2017-11-28 06:11 | disposition left against medical advice (07) | DRG 386 ==
LOC: ER 18:52 → OBSVTOIN 21:45 → MS 21:45
PROVIDERS: ADMIT Nurse Practitioner Family; ATTEND Nurse Practitioner Family
PROC: BW21YZZ Computerized Tomography (CT Scan) of Abdomen and Pelvis using Other Contrast (ICD-10-PCS; principal; 2017-11-26)
DX: K50.111 Crohn's disease of large intestine with rectal bleeding (principal); A09 Infectious gastroenteritis and colitis, unspecified; E87.6 Hypokalemia; R74.8 Abnormal levels of other serum enzymes; E86.0 Dehydration; F41.9 Anxiety disorder, unspecified; F32.9 Major depressive disorder, single episode, unspecified; M48.00 Spinal stenosis, site unspecified; I10 Essential (primary) hypertension; G47.00 Insomnia, unspecified; K21.9 Gastro-esophageal reflux disease without esophagitis; G62.9 Polyneuropathy, unspecified; G89.29 Other chronic pain; Z90.49 Acquired absence of other specified parts of digestive tract; Z79.891 Long term (current) use of opiate analgesic; Z79.899 Other long term (current) drug therapy; Z79.52 Long term (current) use of systemic steroids; Z86.711 Personal history of pulmonary embolism; Z88.5 Allergy status to narcotic agent; Z88.6 Allergy status to analgesic agent; Z88.8 Allergy status to other drugs, medicaments and biological substances

== ENCOUNTER → 2017-11-30 | Outpatient (CLI) | payer OTHER | LOC: LAB.O 18:49 | PROVIDERS: ATTEND Nurse Practitioner Family | DX: D72.829 Elevated white blood cell count, unspecified (principal) ==

== ENCOUNTER 2018-04-07 23:16 | Emergency (ER) | payer OTHER ==
[2018-04-07 23:37] VITALS: TEMP 97.7
--- NOTE | 2018-04-07 23:39 | ED.PDOC ---
History of Present Illness - General Chief Complaint: Abdominal Pain Stated Complaint: Crohn's Flare Up Time Seen by Provider: 04/07/18 23:33 Source: patient, Vital Signs reviewed Additional Information: 47 YEAR OLD COMPLAINTS OF ABDOMINAL PAIN INTERMITTENT ASSOCIATED WITH ABDOMINAL DISTENSION ALSO POSSIBLE FEVER HE HAS NO VOMITING BUT SEVERAL BOUTS OF BLOODY LOOSE STOOLS HE HAS BEEN DIAGNOSED WITH CROHNS DISEASE AT AGE 15 HE HAS HAD A FEW BOWEL RESECTIONS AND SMALL BOWEL OBSTRUCTIONS - History of Present Illness Timing/Duration: 1 week Severity: mild Improving Factors: nothing Associated Symptoms: denies symptoms Allergies/Adverse Reactions: Allergies Fentanyl Allergy (Verified 04/07/18 23:38) Latex Allergy (Verified 04/07/18 23:38) NSAIDs Allergy (Verified 04/07/18 23:38) doesn't take NSAIDS due to Chrohn's Disease Ondansetron [From Zofran] Allergy (Verified 04/07/18 23:38) Home Medications: Ambulatory Orders ALPRAZolam [Xanax] 1 mg PO BEDTIME 01/01/17 Diphenoxylate/Atropine [Lomotil Tab] 7.5 mg PO DAILY@0700 01/01/17 Duloxetine HCl [Cymbalta] 60 mg PO BID 01/01/17 HYDROcodone 10MG/APAP 325MG [Carman 10/325] 1 ea PO Q4H 01/01/17 Zolpidem Tartrate [Ambien] 10 mg PO BEDTIME PRN 01/01/17 Lisinopril [Prinivil] 10 mg PO DAILY #30 tab 01/07/17 Adalimumab [Humira Pen] 40 mg SC MONTHLY 11/26/17 Alprazolam [Xanax] 1 mg PO DAILY PRN 11/26/17 Amphetamine-Dextroamphetamine [Adderall 20 mg] 20 mg PO BID 11/26/17 Colestipol HCl 1 gm PO BID 11/26/17 Diphenoxylate/Atropine [Lomotil Tab] 5 mg PO BEDTIME 11/26/17 Diphenoxylate/Atropine [Lomotil Tab] 7.5 mg PO DAILY@1400 11/26/17 Mesalamine [Apriso] 1.5 gm PO DAILY 11/26/17 Methylprednisolone [Medrol Dose Skyler] 4 mg PO DAILY #1 pack 11/28/17 levoFLOXacin [Levaquin] 500 mg PO DAILY #7 tab 11/28/17 metroNIDAZOLE [Flagyl] 500 mg PO Q8H #21 tab 11/28/17 Review of Systems - Review of Systems Constitutional: States: no symptoms reported EENTM: States: no symptoms reported Respiratory: States: no symptoms reported Cardiology: States: no symptoms reported Gastrointestinal/Abdominal: States: see HPI Genitourinary: States: no symptoms reported Musculoskeletal: States: no symptoms reported Skin: States: no symptoms reported Neurological: States: no symptoms reported Endocrine: States: no symptoms reported Hematologic/Lymphatic: States: no symptoms reported Past Medical History (General) - Patient Medical History Hx Seizures: Yes - # 1 as a child Hx Stroke: No Hx Asthma: Yes Hx of COPD: No Hx Congestive Heart Failure: No Hx Pacemaker: No Hx Hypertension: Yes Hx Diabetes: No Hx Gastroesophageal Reflux: Yes Hx MRSA: No - Vaccination History Hx Tetanus, Diphtheria Vaccination: Yes Hx Influenza Vaccination: No Hx Pneumococcal Vaccination: No - Social History Hx Tobacco Use: No Hx Alcohol Use: No Hx Substance Use: No Hx Physical Abuse: No Hx Emotional Abuse: No Family Medical History - Family History Grandparents Family History: Unknown Cause of : cancer Hx Family;Other: Father had a recent bypass Father Hx Family Hypertension: Yes Hx Cardiac Disease: Yes Hx Family Diabetes: Yes Mother Hx Family Hypertension: Yes Physical Exam - Physical Exam General Appearance: Alert, Obvious distress Eye Exam: bilateral normal Ears, Nose, Throat: hearing grossly normal, normal ENT inspection, normal pharynx Neck: non-tender, full range of motion, supple Respiratory: chest non-tender, lungs clear, normal breath sounds, no respiratory distress, no accessory muscle use Cardiovascular/Chest: normal peripheral pulses, regular rate, rhythm, no edema, no gallop, no JVD, no murmur Gastrointestinal/Abdominal: normal bowel sounds, non tender, soft, distended, tenderness, other - TENDER AROUND THE MID ABD BOWEL SOOUNDS PRESENT NO SIGNS OF PERITONITIS Back Exam: normal inspection, no CVA tenderness, no vertebral tenderness Extremity: normal range of motion, non-tender, normal inspection 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8 L BUN 15 Creatinine 1.02 BUN/Creatinine Ratio 14.7 Random Glucose 89 Serum Osmolality 274.1 L Calcium 9.6 Total Bilirubin 0.4 AST 38 ALT 66 H Alkaline Phosphatase 64 Serum Total Protein 7.4 Albumin 4.2 Globulin 3.2 Albumin/Globulin Ratio 1.3 Departure - Departure Clinical Impression: Abdominal pain, Diarrhea, Crohn's colitis Time of Disposition: 02:06 Disposition: Transfer to Hospital Condition: Fair Departure Forms: ED Discharge - Pt. Copy, Patient Portal Self Enrollment Instructions: DI for Abdominal Pain-Adult Home Medications: Ambulatory Orders ALPRAZolam [Xanax] 1 mg PO BEDTIME 01/01/17 Diphenoxylate/Atropine [Lomotil Tab] 7.5 mg PO DAILY@0700 01/01/17 Duloxetine HCl [Cymbalta] 60 mg PO BID 01/01/17 HYDROcodone 10MG/APAP 325MG [Carman 10/325] 1 ea PO Q4H 01/01/17 Zolpidem Tartrate [Ambien] 10 mg PO BEDTIME PRN 01/01/17 Lisinopril [Prinivil] 10 mg PO DAILY #30 tab 01/07/17 Adalimumab [Humira Pen] 40 mg SC MONTHLY 11/26/17 Alprazolam [Xanax] 1 mg PO DAILY PRN 11/26/17 Amphetamine-Dextroamphetamine [Adderall 20 mg] 20 mg PO BID 11/26/17 Colestipol HCl 1 gm PO BID 11/26/17 Diphenoxylate/Atropine [Lomotil Tab] 5 mg PO BEDTIME 11/26/17 Diphenoxylate/Atropine [Lomotil Tab] 7.5 mg PO DAILY@1400 11/26/17 Mesalamine [Apriso] 1.5 gm PO DAILY 11/26/17 Methylprednisolone [Medrol Dose Skyler] 4 mg PO DAILY #1 pack 11/28/17 levoFLOXacin [Levaquin] 500 mg PO DAILY #7 tab 11/28/17 metroNIDAZOLE [Flagyl] 500 mg PO Q8H #21 tab 11/28/17 Transfer to Outside Facility - Transfer Information Accepting Provider:: DR BUCHANAN Accepting Facility: [facility] Reason for Transfer: specialized care not available
[2018-04-08] MEDS ORDERED: HYDROmorphone HCL INJ 2 MG/ML VIAL IV ONE ×3 (00:17→02:16)
[2018-04-08] MEDS ORDERED: PROMETHAZINE HCL INJ 25 MG in SODIUM CHLORIDE 0.9% 50ML 50 ML IVPB ONE (00:19)
[2018-04-08] MEDS ORDERED: PROMETHAZINE HCL INJ 25 MG/ML VIAL ONE (00:22)
[2018-04-08] MEDS ORDERED: SODIUM CHLORIDE 0.9% 50ML 50 ML ONE (00:23)
--- NOTE | 2018-04-08 00:33 | CT ---
EXAM DESCRIPTION: Abdomen/Pelvis w/Contrast CLINICAL HISTORY: 47 years Male diffuse abdominal pain with nausea, vomiting and diarrhea. COMPARISON: 11/26/2017. TECHNIQUE: Contiguous axial images obtained through the abdomen and pelvis following IV contrast. Reformatted images obtained. This exam was performed according to our department optimization program which includes automated exposure control, adjustment of the mA and/or kv according to patient size and/or use of iterative reconstruction technique. FINDINGS: The lung bases are clear. Small hiatal hernia. Possible wall thickening in the lower esophagus. Clinical correlation recommended to exclude esophagitis. Mild fatty replacement in the liver. The spleen and pancreas appear unremarkable. No adrenal masses. The kidneys appear unremarkable. No hydronephrosis. Changes from previous cholecystectomy. No aneurysmal dilatation of the aorta. The colon is slightly distended with fluid and gas. The fluid in the colon suggests a diarrheal state. No bowel obstruction. Postsurgical changes around the proximal colon. The appendix is not visualized. No free pelvic fluid. Degenerative changes in the spine. IMPRESSION: Small hiatal hernia with possible wall thickening in the lower esophagus. Clinical correlation recommended to exclude esophagitis. The colon is slightly distended with fluid and gas. The fluid in the colon suggests a diarrheal state. No definite bowel obstruction. Postsurgical changes around the proximal colon. Electronically signed by: Luan Munoz MD 04/08/2018 12:32 AM CDT
[2018-04-08] MEDS ORDERED: methylPREDNISolone SODIUM SUC 125 MG/2 ML VIAL IV ONE (01:36)
[2018-04-08 02:19] VITALS: BP 115/90; O2SAT 97
== END 2018-04-08 02:49 | disposition short-term general hospital (02) ==
LOC: ER 23:16
DX: K51.90 Ulcerative colitis, unspecified, without complications (principal); I10 Essential (primary) hypertension; J45.909 Unspecified asthma, uncomplicated; Z79.899 Other long term (current) drug therapy; Z91.040 Latex allergy status
CPT/HCPCS: 36415; 74177; 80053; 85025; 85651; A4216; J1170; J2550; J2930

== ENCOUNTER → 2018-09-21 | Outpatient (CLI) | payer OTHER ==
--- NOTE | 2018-09-21 09:19 | MRI ---
EXAM DESCRIPTION: Brain w/oContrast CLINICAL HISTORY: MIGRAINE COMPARISON: None available TECHNIQUE: Non contrast MRI of the brain is performed according to our usual protocol including multiplanar multi sequence technique. FINDINGS: Sagittal T1 images show intact corpus callosum. Few small scattered foci of decreased signal intensity are seen in the subcortical and central white matter of the cerebral hemispheres. These are in the 2.5 to 5.5 mm size range. No callosal lesions. Normal pituitary gland with normal T1 appearance of the jessica and medulla and upper cervical cord. Normal signal intensity within the clivus and calvarium. Axial T2 fat sat images reveal preservation of intracranial vascular flow voids. Normal khan matter T2 signal intensity. Normal ventricles with normal gyral and sulcal fold pattern. The globes appear intact and symmetrical. No abnormal fluid signal in the tympanic cavities or mastoid air cells. Mucosal thickening is seen in the maxillary sinuses with right maxillary sinus fluid level consistent with sinusitis. Patchy opacification of ethmoid air cells is seen with milder mucosal thickening of the sphenoid sinus. Opacification of right frontal sinus is noted. Axial flair images show few foci of increased signal intensity in the cerebral white matter in the centrum semiovale and in the right posterior frontal subcortical white matter. Perpendicular orientation to the bodies of the lateral ventricles and positive visualization on T1 images might argue for demyelinating process. However the clinical symptoms are not suggestive of MS and these findings may be explained by sequelae of migraine headaches or small vessel ischemic changes related to diabetes or hypertension. Correlate with other studies. No callososeptal lesions are identified. Diffusion weighted images are negative for focal intense increased signal intensity in the brain parenchyma to suggest restricted diffusion. ADC mapping is negative. Axial T1 images show normal khan-white matter differentiation. No high signal intensity hemorrhagic lesion of the brain parenchyma. No subdural hematoma. Axial susceptibility weighted images are negative for focal signal loss to suggest abnormal brain parenchymal calcification or hemosiderin deposition. IMPRESSION: Few chronic-appearing T2/FLAIR white matter hyperintense foci in the cerebral hemispheres. Differential considerations given above. Paranasal sinusitis. Electronically signed by: Ronak Sloan MD 09/21/2018 9:17 AM [facility]
--- NOTE | 2018-09-21 09:34 | MRI ---
EXAM DESCRIPTION: Cervical Spine CLINICAL HISTORY: MIGRAINE COMPARISON: None Available. TECHNIQUE: MRI of the cervical spine is performed according to our usual protocol. FINDINGS: Sagittal T2 images reveal decreased signal intensity within the intervertebral discs. Normal T2 appearance of the cervical cord. Posterior discal abnormalities are not a prominent finding. Mild degenerative retrolisthesis of C4 on C5 measures 3 mm with posterior discal abnormality at C4-5 and extension inferiorly behind upper C5 vertebral body. Sagittal T1 images show benign marrow signal characteristics. Normal T1 appearance of the cervical and upper thoracic spinal cord. Normal alignment of the vertebral bodies and facets. Sagittal STIR images are negative for high signal intensity marrow edema within the vertebral bodies or posterior elements. No paraspinous fluid collection or cystic lesion. Axial images were obtained to evaluate the disc levels. C2-3: Normal posterior disc margin with no spinal stenosis or neural foraminal narrowing. Facets appear normal. Normal appearance of the cord at this level. C3-4: Mild posterior disc/osteophyte complex without spinal stenosis or left-sided neural foraminal narrowing. Right neural foraminal narrowing is moderately severe related to uncovertebral joint more than facet spurring. Facets appear mildly hypertrophied. Normal appearance of the cord at this level. C4-5: Broad-based midline disc protrusion appears chronic with low signal intensity and measures 4 mm in AP dimension and approximately 1.2 cm in mediolateral width. No significant spinal stenosis. Broad-based protrusion extends inferiorly behind upper half of C5 (sagittal T2 image seven, series 201, axial images 18 and 19, series 601). No cord compression. There is moderate facet hypertrophy with mild neural foraminal narrowing bilaterally. C5-6: Mild posterior disc/osteophyte complex is seen without spinal stenosis or right-sided neural foraminal narrowing. There is moderate left neural foraminal narrowing related to facet and uncovertebral joint spurring. Normal appearance of the cord at this level. C6-7: Normal posterior disc margin with no spinal stenosis or neural foraminal narrowing. Facets appear mildly hypertrophied. Normal appearance of the cord at this level. C7-T1: Normal posterior disc margin with no spinal stenosis or neural foraminal narrowing. Facet hypertrophy is mild. Normal appearance of the cord at this level. IMPRESSION: Broad-based midline disc protrusion 4 mm at C4-5 with extension inferiorly as described. Neural foraminal narrowing appears most significant on the right at C3-4 and on the left at C5-6. Electronically signed by: Ronak Sloan MD 09/21/2018 9:32 AM [facility]
== END ==
LOC: MRI 08:00
PROVIDERS: ATTEND Family Medicine
DX: G43.909 Migraine, unspecified, not intractable, without status migrainosus (principal); M50.221 Other cervical disc displacement at C4-C5 level

== ENCOUNTER 2018-09-27 02:48 | Observation (INO) | payer SELFPAY ==
[2018-09-27] MEDS ORDERED: MORPHINE SULFATE INJ 10 MG/ML VIAL IV ONE (03:28)
[2018-09-27] MEDS ORDERED: PROMETHAZINE HCL INJ 25 MG in SODIUM CHLORIDE 0.9% 50ML 50 ML IVPB ONE (03:28)
[2018-09-27] MEDS ORDERED: SODIUM CHLORIDE 0.9% 1000ML 1,000 ML IVS ONE ×2 (03:28→05:58)
[2018-09-27] MEDS ORDERED: PROMETHAZINE HCL INJ 25 MG/ML VIAL ONE (03:37)
[2018-09-27] MEDS ORDERED: SODIUM CHLORIDE 0.9% 50ML 50 ML ONE (03:38)
[2018-09-27] MEDS ORDERED: HYDROmorphone HCL INJ 2 MG/ML VIAL IV ONE ×2 (04:20→05:58)
--- NOTE | 2018-09-27 04:41 | ED.PDOC ---
History of Present Illness - General Chief Complaint: Abdominal Pain Stated Complaint: crohns flare up pain Time Seen by Provider: 09/27/18 03:12 Source: patient Exam Limitations: no limitations - History of Present Illness Initial Comments: the patient's a 48-year-old male presented to the emergency room with 40 feels to be a Crohn's exacerbation. He has had Crohn's for many years and has had a bowel resthe past. The patient has reported increasing abdominal pain over the past 2-3 weeks with some nausea and vomiting over the last few days. He has had a few episodes of diarrhea. He thinks he may have had a fever but is uncertain. Decreased oral intake over the past few days. He has been hospitalized on multiple occasions for Crohn's in the past. Timing/Duration: other - 2-3 weeks Severity: moderate Improving Factors: nothing Worsening Factors: nothing Associated Symptoms: fever/chills, loss of appetite, malaise, nausea/vomiting Allergies/Adverse Reactions: Allergies Fentanyl Allergy (Verified 09/27/18 03:00) Latex Allergy (Verified 04/07/18 23:38) NSAIDs Allergy (Verified 09/27/18 03:00) doesn't take NSAIDS due to Chrohn's Disease Ondansetron [From Zofran] Allergy (Verified 04/07/18 23:38) Home Medications: Ambulatory Orders ALPRAZolam [Xanax] 1 mg PO BEDTIME 01/01/17 Diphenoxylate/Atropine [Lomotil Tab] 7.5 mg PO DAILY@0700 01/01/17 Duloxetine HCl [Cymbalta] 60 mg PO BID 01/01/17 HYDROcodone 10MG/APAP 325MG [Eastman 10/325] 1 ea PO Q4H 01/01/17 Zolpidem Tartrate [Ambien] 10 mg PO BEDTIME PRN 01/01/17 Lisinopril [Prinivil] 10 mg PO DAILY #30 tab 01/07/17 Adalimumab [Humira Pen] 40 mg SC MONTHLY 11/26/17 Alprazolam [Xanax] 1 mg PO DAILY PRN 11/26/17 Amphetamine-Dextroamphetamine [Adderall 20 mg] 20 mg PO BID 11/26/17 Colestipol HCl 1 gm PO BID 11/26/17 Diphenoxylate/Atropine [Lomotil Tab] 5 mg PO BEDTIME 11/26/17 Diphenoxylate/Atropine [Lomotil Tab] 7.5 mg PO DAILY@1400 11/26/17 Mesalamine [Apriso] 1.5 gm PO DAILY 11/26/17 Methylprednisolone [Medrol Dose Skyler] 4 mg PO DAILY #1 pack 11/28/17 levoFLOXacin [Levaquin] 500 mg PO DAILY #7 tab 11/28/17 metroNIDAZOLE [Flagyl] 500 mg PO Q8H #21 tab 11/28/17 Review of Systems - Review of Systems Constitutional: States: fever, malaise EENTM: States: no symptoms reported Respiratory: States: no symptoms reported Cardiology: States: no symptoms reported Gastrointestinal/Abdominal: States: abdominal pain, diarrhea, nausea, vomiting Musculoskeletal: States: no symptoms reported Skin: States: no symptoms reported Neurological: States: anxiety Endocrine: States: no symptoms reported All other Systems: No Change from Baseline Past Medical History (General) - Patient Medical History Hx Seizures: Yes - # 1 as a child Hx Stroke: No Hx Dementia: No Hx Asthma: Yes Hx of COPD: No Hx Cardiac Disorders: No Hx Congestive Heart Failure: No Hx Pacemaker: No Hx Hypertension: Yes Hx Thyroid Disease: No Hx Diabetes: No Hx Gastroesophageal Reflux: No Hx Renal Disease: No Hx Cancer: No Hx of HIV: No Hx Hepatitis C: No Hx MRSA: No Surgical History: appendectomy, other - Vaccination History Hx Tetanus, Diphtheria Vaccination: Yes Hx Influenza Vaccination: Yes Hx Pneumococcal Vaccination: Yes Immunizations Up to Date: Yes - Social History Hx Tobacco Use: Yes Hx Alcohol Use: No Hx Substance Use: No Hx Substance Use Treatment: No Hx Depression: No Feels Threatened In Home Enviroment: No Feels Threatened In a Relationship: No Hx Physical Abuse: No Hx Emotional Abuse: No Hx Suspected Abuse: No - Activities of Daily Living Hospice Agency (if applicable):: None - Triage Comment ED Triage Comment: Pt states that he has a flare up of Crohn's disease that has been ongoing for four days and the pain became severe on 09/26/18 at 1600. Pt states that pain is 8/10. Pt also states that he has not been able to keep anything down for two days. Family Medical History - Family History Grandparents Family History: Unknown Cause of : cancer Hx Family;Other: Father had a recent bypass Father Hx Family Hypertension: Yes Hx Cardiac Disease: Yes Hx Family Diabetes: Yes Mother Hx Family Hypertension: Yes Physical Exam - Physical Exam General Appearance: Alert, Anxious, No apparent distress Eye Exam: bilateral normal Ears, Nose, Throat: hearing grossly normal, normal ENT inspection, normal pharynx Neck: full range of motion, supple Respiratory: lungs clear, normal breath sounds, no respiratory distress, no accessory muscle use Cardiovascular/Chest: normal peripheral pulses, regular rate, rhythm, no edema Peripheral Pulses: radial,right: 2+, radial,left: 2+, dorsalis pedis,right: 2+, dorsalis pedis,left: 2+ Gastrointestinal/Abdominal: other - scars are present from previous surgery. Epigastric to right upper quadrant discomfort palpation at previous surgical anastomosis site. 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 He already takes Humira. He is being placed on IV Solu-Medrol as this has historically been more productive than prednisone for him in the short-term. He is also empirically going to be placed on ciprofloxacin and metronidazole until the need is disproven. Urinalysis, ESR and C. difficile are still pending. He is moderately dehydrated from the nausea and vomiting and diarrhea and is receiving IV fluids and nausea medications. He does have a mild lactic acidosis which will require following. X-ray shows no evidence of any perforation or obstruction. No free air. White blood cell count is reassuring when compared to his previous labs. Continue pain medications as necessary. Once the patient's nausea is better controlled, consideration could be given towards a CT scan of the abdomen and pelvis with IV and by mouth contrast if the patient is failing to improve as desired. admit for continued care. - Results/Orders Results/Orders: still pending on the following: UA [URINALYSIS] Stat ERYTHROCYTE SEDIMENTATION RATE Stat cdiff [CLOSTRIDIUM DIFFICILE AG/TOXIN] Stat Laboratory Results - last 24 hr 09/27/18 09/27/18 09/27/18 03:27 03:27 03:27 WBC 9.0 RBC 4.72 Hgb 13.8 L Hct 40.7 L MCV 86.1 MCH 29.2 MCHC 34.0 RDW 12.8 Plt Count 690 H MPV 7.4 Absolute Neuts (auto) 8.20 H Absolute Lymphs (auto) 0.70 L Absolute Monos (auto) 0.10 L Absolute Eos (auto) 0.00 Absolute Basos (auto) 0.00 Neutrophils % 90.7 H Lymphocytes % 8.0 L Monocytes % 0.8 L Eosinophils % 0.1 L Basophils % 0.4 Sodium 135 Potassium 3.6 Chloride 103 Carbon Dioxide 23 Anion Gap 12.6 BUN 12 Creatinine 0.90 BUN/Creatinine Ratio 13.3 Random Glucose 151 H Serum Osmolality 272.8 L Lactic Acid 4.1 H* Calcium 9.0 Total Bilirubin 0.4 AST 36 ALT 40 Alkaline Phosphatase 70 Serum Total Protein 7.0 Albumin 3.4 Globulin 3.6 H Albumin/Globulin Ratio 0.9 L Amylase 32 Lipase 29 x-ray of abdomen shows no evidence of perforation or obstruction. Postsurgical changes are noted. Departure - Departure Clinical Impression: Dehydration Exacerbation of Crohn's disease Qualifiers: Digestive disease complication type: unspecified complication Qualified Code(s): K50.919 - Crohn's disease, unspecified, with unspecified complications Abdominal pain Qualifiers: Abdominal location: generalized Qualified Code(s): R10.84 - Generalized abdominal pain Vomiting Qualifiers: Vomiting type: unspecified Vomiting Intractability: non-intractable Nausea presence: with nausea Qualified Code(s): R11.2 - Nausea with vomiting, unspecified Disposition: Admit Patient Home Medications: Ambulatory Orders ALPRAZolam [Xanax] 1 mg PO BEDTIME 01/01/17 Diphenoxylate/Atropine [Lomotil Tab] 7.5 mg PO DAILY@0700 01/01/17 Duloxetine HCl [Cymbalta] 60 mg PO BID 01/01/17 HYDROcodone 10MG/APAP 325MG [Eastman 10/325] 1 ea PO Q4H 01/01/17 Zolpidem Tartrate [Ambien] 10 mg PO BEDTIME PRN 01/01/17 Lisinopril [Prinivil] 10 mg PO DAILY #30 tab 01/07/17 Adalimumab [Humira Pen] 40 mg SC MONTHLY 11/26/17 Alprazolam [Xanax] 1 mg PO DAILY PRN 11/26/17 Amphetamine-Dextroamphetamine [Adderall 20 mg] 20 mg PO BID 11/26/17 Colestipol HCl 1 gm PO BID 11/26/17 Diphenoxylate/Atropine [Lomotil Tab] 5 mg PO BEDTIME 11/26/17 Diphenoxylate/Atropine [Lomotil Tab] 7.5 mg PO DAILY@1400 11/26/17 Mesalamine [Apriso] 1.5 gm PO DAILY 11/26/17 Methylprednisolone [Medrol Dose Skyler] 4 mg PO DAILY #1 pack 11/28/17 levoFLOXacin [Levaquin] 500 mg PO DAILY #7 tab 11/28/17 metroNIDAZOLE [Flagyl] 500 mg PO Q8H #21 tab 11/28/17 Decision To Admit - Decistion To Admit Decision to Admit Reason: Medical Nature Decision to Admit Date: 09/27/18 Decision to Admit Time: 05:57
--- NOTE | 2018-09-27 05:32 | RAD ---
CLINICAL HISTORY: abd pain, crohns COMPARISON: None. 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 There are no abnormal radiopaque foreign bodies or abnormal calcifications. Osseous structures are grossly unremarkable. The heart is normal in size. Lungs are clear. Cholecystectomy was performed. IMPRESSION: No definite bowel obstruction. Electronically signed by: Gael Negron MD 09/27/2018 5:30 AM CASTING MACHINE CONTROL BOARD OPERATOR
[2018-09-27] MEDS ORDERED: methylPREDNISolone SODIUM SUC 125 MG/2 ML VIAL IV ONE (05:34)
[2018-09-27] MEDS ORDERED: levoFLOXacin 500MG IV 500 MG in PREMIX BAG 1 BAG IVPB ONE (05:34)
[2018-09-27] MEDS ORDERED: metroNIDAZOLE IV PREMIX 500MG 500 MG in PREMIX BAG 1 BAG IVPB ONE (05:34)
[2018-09-27] MEDS ORDERED: levoFLOXacin 500MG IV 100 ML IVPB ONE (05:38)
[2018-09-27] MEDS ORDERED: metroNIDAZOLE IV PREMIX 500MG 100 ML IVPB ONE (06:34)
[2018-09-27] MEDS ORDERED: ONDANSETRON INJ 4 MG/2 ML VIAL IV PRN (09:17)
[2018-09-27] MEDS ORDERED: SODIUM CHLORIDE 0.9% (FLUSH) 10 ML SYG IV PRN (09:17)
[2018-09-27] MEDS ORDERED: KCL 20MEQ/D5 1/2NS 1,000 ML IVS PRN (09:23)
[2018-09-27] MEDS ORDERED: IV SET AND CAP CHANGE INJ INJ SCH (09:30)
[2018-09-27] MEDS ORDERED: PANTOPRAZOLE SODIUM IV 40 MG VIAL IV SCH (09:30)
[2018-09-27] MEDS ORDERED: ENOXAPARIN SODIUM 40 MG/0.4 ML SYG SUBCU SCH (09:30)
[2018-09-27] MEDS: HYDROmorphone HCL INJ 2 MG/ML VIAL IV PRN ×2 (09:41→14:13)
[2018-09-27 09:46] VITALS: O2SAT 95
--- NOTE | 2018-09-27 10:45 | CT ---
EXAM DESCRIPTION: Abdomen/Pelvis w/wo Contrast CLINICAL HISTORY: 48 years Male, acute on chronic pancreatitis COMPARISON: Ct abdomen and pelvis dated 04/07/2018 TECHNIQUE: Contiguous 3 mm axial images were obtained from the lung bases to the level of the proximal femora before and after the administration of intravenous and oral contrast. Sagittal and coronal reconstructions were reviewed. FINDINGS: THORAX: Hazy airspace opacities in the bilateral lower lobes could represent atelectasis and/or pneumonia. LIVER: The liver demonstrates normal size and density with no intrahepatic biliary ductal dilatation or focal masses. GALLBLADDER: Surgically absent. PANCREAS: Appears normal with no cystic or solid lesions. SPLEEN: Normal ADRENAL GLANDS: Normal with no nodules or masses. KIDNEYS: Both kidneys enhance symmetrically with no hydronephrosis or nephrolithiasis or perinephric fluid collections. No focal masses are identified. The visualized ureters appear grossly unremarkable. STOMACH: Significant thickening of the distal esophagus could be secondary to reflux. The stomach is mildly distended with no gross abnormality. SMALL BOWEL: The small bowel loops demonstrate variable degrees of distention with no abnormal dilatation or other signs to suggest bowel obstruction. LARGE BOWEL: Surgical changes are identified in the right colon. The sigmoid colon is not well-distended limiting detailed evaluation. No evidence of free intraperitoneal air or fluid. RETROPERITONEUM: The abdominal aorta is nonaneurysmal with no significant atherosclerosis. The inferior vena cava is normal in size and caliber. No abnormally enlarged retroperitoneal lymph nodes are identified. URINARY BLADDER:The urinary bladder is well-distended with no gross abnormality. The prostate gland seminal vesicles appear normal. ADDITIONAL FINDINGS: Bilateral fat-containing inguinal hernias are identified. BONES: Mild degenerative changes are identified in the visualized bones.No evidence of osteophytic or osteoblastic lesions. IMPRESSION: 1. No evidence of acute or chronic pancreatitis. 2. Reflux esophagitis. 3. Airspace opacities in the bilateral lower lobes could represent atelectasis and/or pneumonia. This exam was performed according to our departmental dose-optimization program, which includes automated exposure control, adjustment of the mA and/or kV according to patient size and/or use of iterative reconstruction technique. Electronically signed by: Pricilla Fuentes MD 09/27/2018 10:43 AM QUALITY INTERN
[2018-09-27] MEDS ORDERED: cloNIDine PATCH 0.2 MG/24HR 0.2 MG, cloNIDine PATCH 0.1MG/24HR 0.1 MG TD SCH ×2 (11:30)
[2018-09-27] MEDS ORDERED: cloNIDine PATCH 0.1MG/24HR 0.1 MG PATCH TD ONE (12:40)
[2018-09-27] MEDS ORDERED: cloNIDine PATCH 0.2 MG/24HR 0.2 MG PATCH TD ONE (12:40)
[2018-09-27 13:42] VITALS: BP 120/75; TEMP 97.5
--- NOTE | 2018-09-27 15:12 | SSS ---
SUPERVISING PHYSICIAN: Eloisa العلي MD DISCHARGE DIAGNOSIS: 1. Abdominal pain with history of Crohn's disease on Humira with CT scan showing evidence of reflux esophagitis. 2. Status post multiple bowel resections times 4 with a significant history of abdominal pain and hospital admissions. 3. Nausea and vomiting secondary to #1, which has resolved since admission and after the administration of fluids. His initial lactic acid was 4.1 and after fluids, it was 1.7. 4. Mild dehydration secondary to nausea and vomiting, which resolved after fluids. 6. Anxiety and depression. 7. Chronic pain syndrome, most likely secondary to Crohn's disease as well as spinal stenosis. HISTORY OF PRESENT ILLNESS: This is a 48-year-old male patient who presented to the Emergency Room early on the date of admission with abdominal pain. He felt it may be due to a Crohn's exacerbation. He had increasing pain in his abdomen over two to three weeks. He also had some nausea and vomiting with a few episodes of diarrhea although he does have chronic diarrhea. He was unsure if he had a fever, but he felt some chills at times. He has also had poor oral intake and he has been hospitalized multiple times in the past for Crohn's disease as well as abdominal pain. In the Emergency Room, his electrolytes were basically within normal limits except his random glucose was 151 and his serum osmolality was slightly low at 272.8. His liver enzymes were within normal limits. His initial lactic acid was 4.1, but after fluids, it was 1.7. His WBCs were 9 and his hemoglobin was 13.8, hematocrit 40.7. His ESR was 51. His vital signs showed a temperature 97.7, heart rate 90, blood pressure 144/93, respiratory rate 20, O2 saturation 98% on room air. He was given some fluids in the Emergency Room. He was given some morphine. He was also given some Flagyl and some Levaquin as well as one dose of Solu-Medrol. His was not controlled and they changed his pain medication to hydromorphone. His abdominal x-ray showed no definite bowel obstruction, some gaseous distention of the colon and I was called for hospital admission. HOSPITAL COURSE: The patient was placed in Observation. He was given additional fluids as well as placed on bowel rest. He was also given IV Dilaudid. A CAT scan was performed of the abdomen and pelvis and the impression of the CAT scan showed 1) No evidence of acute or chronic pancreatitis. 2) Reflux esophagitis. 3) Airspace opacities in the bilateral lower lobe, could represent atelectasis and/or pneumonia. I called his GI doctor, Dr. Lopez's office, and Dr. Clayton was commercial construction superintendent. After speaking with Dr. Clayton and discussing the patient's test results as well as physical condition, he felt that it would be appropriate for the patient to be treated as an outpatient and he would like him to see his sales force administrator, Dr. Lopez, as soon as possible at the office in [place]. I spoke with Dr. Lopez's office and he has an appointment for close followup with RICK Valenzuela, at Dr. Lopez's office on 10/10/18 at 3:30 PM. I have also given him a DVD of his CAT scan. The patient's diet was advanced to a bland diet. He tolerated that without problems. He has had no complaints of nausea or vomiting since admission. PAST MEDICAL HISTORY: 1. Crohn's disease. 2. Spinal stenosis. 3. Neuropathy. 4. Past history of pulmonary embolism. 5. Hypertension on lisinopril. 6. History of neck and lumbar fracture. 7. Chronic back pain. 8. Insomnia. 9. Depression with anxiety. PAST SURGICAL HISTORY: 1. Colon resection times 4. 2. Cholecystectomy. 3. Appendectomy. OUTPATIENT MEDICATIONS: 1. Humira. 2. Vitamin B12. 3. Diazepam. 4. Lomotil. 5. Cymbalta. 6. Hydrocodone 10/325. 7. Lisinopril. 8. Singulair. 9. Promethazine. 10. Imitrex. 11. Ambien. ALLERGIES: FENTANYL, NSAIDS, LATEX, ZOFRAN. SOCIAL HISTORY: The patient lives in [place]. He denies any tobacco, alcohol or illicit drug use. REVIEW OF SYSTEMS: Negative except as per history of present illness. PHYSICAL EXAMINATION: VITAL SIGNS: Afebrile with temperature 97.5. Heart rate 85. Blood pressure 120/75. Respiratory rate 16. O2 saturation 95% on room air. GENERAL: This is a 48-year-old male patient lying in his hospital bed. He is in no acute distress. HEENT: Normocephalic, atraumatic. Pupils are equal and reactive. Oropharynx is clear. His oral mucous membranes are moist. NECK: Supple without mass. RESPIRATORY: Essentially clear to auscultation. CARDIOVASCULAR: Regular rate and rhythm. GASTROINTESTINAL: Abdomen is soft, very mildly and diffusely tender, but no rebound tenderness, no guarding. Bowel sounds are positive. EXTREMITIES: No cyanosis, clubbing or edema. NEUROLOGIC: Awake, alert and oriented times three. LABORATORY: Labs and films are as per history of present illness. DISCHARGE PLAN: The patient will be discharged home in stable condition. He is to resume his previous medications and he is to followup with his primary care physician, Dr. Adrian Cedeno, within the next two weeks as well as his pain medication doctor, Dr. Burnett. He also has an appointment at his sales force administrator's office on 10/10/18 with Nura Weaver at 3:30 in the afternoon. I have given him a DVD of his CT scan to take to the GI office. He is to increase his activity as tolerated. He is to continue with a bland diet. He is to return to the hospital or followup with his GI doctor for any further problems or complications. DISCHARGE MEDICATIONS: 1. Hydrocodone. 2. Cymbalta. 3. Lomotil. 4. Ambien. 5. Prinivil. 6. Humira. 7. Diazepam. 8. Imitrex. 9. Singulair. 10. Promethazine. 11. Cyanocobalamin. #[id number] MTDD
[2018-09-27] MEDS ORDERED: SODIUM CHLORIDE 0.9% (FLUSH) 10 ML SYG IV SCH (21:00)
== END 2018-09-27 14:55 | disposition home or self-care (01) ==
LOC: ER 02:48 → OBSVTOIN 06:23 → INTOOBSV 06:23 → MS 06:23
PROVIDERS: ADMIT Nurse Practitioner Acute Care; ATTEND Nurse Practitioner Acute Care
DX: K50.90 Crohn's disease, unspecified, without complications (principal); E87.2 Acidosis; E86.0 Dehydration; K21.0 Gastro-esophageal reflux disease with esophagitis; F41.8 Other specified anxiety disorders; I10 Essential (primary) hypertension; G89.4 Chronic pain syndrome; G62.9 Polyneuropathy, unspecified; G47.00 Insomnia, unspecified; M54.5 Low back pain; M48.00 Spinal stenosis, site unspecified; Z86.711 Personal history of pulmonary embolism; Z79.891 Long term (current) use of opiate analgesic; Z79.899 Other long term (current) drug therapy; Z88.6 Allergy status to analgesic agent; Z88.8 Allergy status to other drugs, medicaments and biological substances; Z91.040 Latex allergy status; Z90.49 Acquired absence of other specified parts of digestive tract; Z87.891 Personal history of nicotine dependence

== ENCOUNTER 2019-04-21 01:12 | Inpatient (IN) | payer SELFPAY ==
[2019-04-21] MEDS ORDERED: methylPREDNISolone SODIUM SUC 125 MG/2 ML VIAL IV ONE (02:43)
[2019-04-21] MEDS ORDERED: SODIUM CHLORIDE 0.9% 1000ML 1,000 ML IVS PRN (02:44)
--- NOTE | 2019-04-21 02:55 | ED.PDOC ---
History of Present Illness - General Chief Complaint: Abdominal Pain Stated Complaint: right side abd pain Time Seen by Provider: 04/21/19 02:25 Source: patient Exam Limitations: no limitations - History of Present Illness Initial Comments: Patient presents with an acute exacerbation of Crohn's disease. He has been having diarrhea and abominal pain for three weeks. He says that he is up to 10- 12 bowel movements per day. He sees blood in the toilet. No recent abx use. His abdominal pain is non-specific and travels right to left side, no exacerbating nor alleviating factors. He does have N/V. He usually takes Humira but it was becoming too expensive so he had to stop. He takes [place] at home for pain. He says that solumedrol has worked in the past to keep acute exacerbations under control. No other complaints. Timing/Duration: other - 3 weeks Severity: moderate Improving Factors: nothing Worsening Factors: nothing Associated Symptoms: other - as in HPI Allergies/Adverse Reactions: Allergies Fentanyl Allergy (Verified 09/27/18 03:00) Latex Allergy (Verified 04/07/18 23:38) NSAIDs Allergy (Verified 09/27/18 03:00) doesn't take NSAIDS due to Chrohn's Disease Ondansetron [From Zofran] Allergy (Verified 04/07/18 23:38) Home Medications: Ambulatory Orders Duloxetine HCl [Cymbalta] 60 mg PO BID 01/01/17 HYDROcodone 10MG/APAP 325MG [[place] 10/325] 1 ea PO Q4H 01/01/17 Zolpidem Tartrate [Ambien] 10 mg PO BEDTIME PRN 01/01/17 Lisinopril [Prinivil] 10 mg PO DAILY #30 tab 01/07/17 Adalimumab [Humira Pen] 40 mg SC MONTHLY 11/26/17 Diphenoxylate/Atropine [Lomotil Tab] 5 mg PO BEDTIME 11/26/17 Diphenoxylate/Atropine [Lomotil Tab] 7.5 mg PO DAILY@1400 11/26/17 Cyanocobalamin Inj [Vitamin B-12 Inj] 1,000 mcg IM BIW 09/27/18 Diazepam 10 mg PO TID 09/27/18 Montelukast [Singulair] 10 mg PO DAILY 09/27/18 Promethazine HCl 25 mg PO PRN PRN 09/27/18 SUMAtriptan SUCCINATE [Imitrex] 50 mg PO PRN PRN 09/27/18 Review of Systems - Review of Systems Constitutional: States: no symptoms reported EENTM: States: no symptoms reported Respiratory: States: no symptoms reported Cardiology: States: no symptoms reported Gastrointestinal/Abdominal: States: see HPI Genitourinary: States: no symptoms reported Musculoskeletal: States: no symptoms reported Skin: States: no symptoms reported Neurological: States: no symptoms reported Endocrine: States: no symptoms reported Hematologic/Lymphatic: States: no symptoms reported Past Medical History (General) - Patient Medical History Hx Seizures: No Hx Stroke: No Hx Dementia: No Hx Asthma: Yes Hx of COPD: No Hx Cardiac Disorders: No Hx Congestive Heart Failure: No Hx Pacemaker: No Hx Hypertension: Yes Hx Thyroid Disease: No Hx Diabetes: No Hx Gastroesophageal Reflux: No Hx Renal Disease: No Hx Cancer: No Hx of HIV: No Hx Hepatitis C: No Hx MRSA: No Surgical History: cholecystectomy - Vaccination History Hx Tetanus, Diphtheria Vaccination: Yes Hx Influenza Vaccination: No Hx Pneumococcal Vaccination: No Immunizations Up to Date: Yes - Social History Hx Tobacco Use: No Hx Chewing Tobacco Use: No Hx Alcohol Use: No Hx Substance Use: No Hx Substance Use Treatment: No Hx Depression: No Feels Threatened In Home Enviroment: No Feels Threatened In a Relationship: No Hx Physical Abuse: No Hx Emotional Abuse: No Hx Suspected Abuse: No - Activities of Daily Living Hospice Agency (if applicable):: None - Female History Patient is a Female of Child Bearing Age (10 -59 yrs old): No Patient : No - Triage Comment ED Triage Comment: states right side pain and rectal bleeding occuring for 3 weeks, s/s worsned tonight at 0030 Family Medical History - Family History Grandparents Cause of : cancer Hx Family;Other: Father had a recent bypass Father Family History: No Known Living Status: Still Living Hx Family Hypertension: Yes Hx Cardiac Disease: Yes Hx Family Diabetes: Yes Hx Family Cancer: No Mother Family History: No Known Living Status: Still Living Hx Family Asthma: No Hx Family Congestive Heart Failure: No Hx Family Hypertension: Yes Hx Family Stroke: Yes Hx Cardiac Disease: Yes Hx Family Diabetes: No Hx Family Cancer: No Physical Exam - Physical Exam General Appearance: Alert Eye Exam: bilateral normal Ears, Nose, Throat: normal ENT inspection Neck: non-tender, full range of motion, supple Respiratory: lungs clear, normal breath sounds Cardiovascular/Chest: normal peripheral pulses, regular rate, rhythm, no edema Gastrointestinal/Abdominal: normal bowel sounds, non tender, soft Back Exam: normal inspection, no CVA tenderness Extremity: normal range of motion, non-tender, normal inspection Neurologic: no motor/sensory deficits, alert, normal mood/affect, oriented x 3 Skin Exam: normal color Lymphatic: no adenopathy Progress - Progress Progress: 04/21/19 02:56 Laboratory Tests 04/21/19 04/21/19 04/21/19 01:48 01:48 02:08 WBC 10.4 RBC 4.97 Hgb 14.4 Hct 42.1 MCV 84.7 MCH 28.9 MCHC 34.1 RDW 12.9 Plt Count 429 H MPV 6.7 L Neutrophils % (Manual) 51.0 Lymphocytes % (Manual) 31.0 Monocytes % (Manual) 6.0 Band Neutrophils 2.0 Eosinophils 10.0 Platelet Estimate Normal Normal RBC Morphology Normal rbc morph Sodium 137 Potassium 4.7 Chloride 103 Carbon Dioxide 23 Anion Gap 15.7 BUN 12 Creatinine 0.97 BUN/Creatinine Ratio 12.4 Random Glucose 107 H Serum Osmolality 274.1 L Calcium 9.1 Total Bilirubin 0.9 AST 36 ALT 31 Alkaline Phosphatase 66 Serum Total Protein 7.1 Albumin 3.7 Globulin 3.4 Albumin/Globulin Ratio 1.1 Lipase 42 Urine Color Yellow Urine Appearance Clear Urine pH 5.5 Ur Specific [place] >= 1.030 Urine Protein 30 Urine Glucose (UA) Negative Urine Ketones Negative Urine Blood Negative Urine Nitrite Negative Urine Bilirubin Negative Urine Urobilinogen 0.2 Ur Leukocyte Esterase Negative Urine RBC 1-3 Urine WBC 1-3 Ur Epithelial Cells 0 Urine Bacteria 0 Urine Mucus Small Patient given solumedrol 125 mg IV x one, morphine 4 mg IV x one, and phenergan 25 mg IV x one in the E.D. Admitted by Kate Valles for Crohn's exacerbation. Also, started in IV NS at 125 ml/hr. Departure - Departure Clinical Impression: Crohn disease Disposition: Admit Patient Condition: Fair Departure Forms: ED Discharge - Pt. Copy, Patient Portal Self Enrollment Diet: resume usual diet Activity: increase activity as tolerated Referrals: NANCI,OBDULIA L IV, COSMETIC MAKER [Primary Care Provider] - 1-2 Weeks Home Medications: Ambulatory Orders Duloxetine HCl [Cymbalta] 60 mg PO BID 01/01/17 HYDROcodone 10MG/APAP 325MG [[place] 10/325] 1 ea PO Q4H 01/01/17 Zolpidem Tartrate [Ambien] 10 mg PO BEDTIME PRN 01/01/17 Lisinopril [Prinivil] 10 mg PO DAILY #30 tab 01/07/17 Adalimumab [Humira Pen] 40 mg SC MONTHLY 11/26/17 Diphenoxylate/Atropine [Lomotil Tab] 5 mg PO BEDTIME 11/26/17 Diphenoxylate/Atropine [Lomotil Tab] 7.5 mg PO DAILY@1400 11/26/17 Cyanocobalamin Inj [Vitamin B-12 Inj] 1,000 mcg IM BIW 09/27/18 Diazepam 10 mg PO TID 09/27/18 Montelukast [Singulair] 10 mg PO DAILY 09/27/18 Promethazine HCl 25 mg PO PRN PRN 09/27/18 SUMAtriptan SUCCINATE [Imitrex] 50 mg PO PRN PRN 09/27/18
[2019-04-21] MEDS ORDERED: MORPHINE SULFATE INJ 10 MG/ML VIAL IV ONE (02:57)
[2019-04-21] MEDS ORDERED: PROMETHAZINE HCL INJ 25 MG in SODIUM CHLORIDE 0.9% 50ML 50 ML IVPB ONE (02:58)
[2019-04-21] MEDS ORDERED: PROMETHAZINE HCL INJ 25 MG/ML VIAL ONE ×3 (03:04→19:53)
[2019-04-21] MEDS ORDERED: SODIUM CHLORIDE 0.9% 50ML 50 ML ONE ×3 (03:05→19:53)
--- NOTE | 2019-04-21 03:06 | HP ---
SUPERVISING PHYSICIAN: Xavier Hightower M.D. CHIEF COMPLAINT: Nausea, vomiting and diarrhea times 2 to 3 weeks with a history of Crohn's disease. HISTORY OF PRESENT ILLNESS: This is a 48 year-old male patient who has a longstanding history of Crohn's disease. He has also had 4 bowel resections due to complications from Crohn's disease. He has had about 10 to 12 bowel movements per day for the last 2 to 3 weeks. He actually has seen some blood in the toilet. His pain is diffuse but mostly in the right lower quadrant. He does have some radiation to the left upper quadrant. He does take [place] at home but he says that is for spinal stenosis and has a pain contract with the pain management physician. He previously was on Humira and he stopped taking that due to losing his insurance, and it was very expensive. He did say that he has seen Adrian Cedeno as a primary care physician in the past, but was going to try to go see Dr. Xavier Hightower. He also has seen Dr. Lopez and Dr. Ramos, both GI doctors in [place] in the past, but he has not seen them in several months and is wanting to switch to a GI doctor in the [facility]. In the E. R., his vital signs were temperature 98.2, heart rate 103, blood pressure 145/122, respiratory rate 18, O2 sat 98%. Lab was done and CBC was basically unremarkable with the exception of his platelets were 429. Metabolic panel was within normal limits with the exception of serum osmolality was 274.1. Urinalysis was unremarkable. Abdominal x-ray showed no bowel obstruction. He was given some fluids in the Emergency Room as well as some Zantac, Phenergan and 125 mg of Solu-Medrol. He did have a mild reaction to morphine, a mild rash in response to the morphine and was given some Benadryl. There was no shortness of breath or wheezing. I was called for hospital admission. PAST MEDICAL HISTORY: 1. Crohn's disease. 2. Spinal stenosis. 3. Neuropathy. 4. History of pulmonary embolism. 5. Hypertension. 6. History of neck and lumbar fracture. 7. Insomnia. 8. Depression with anxiety. PAST SURGICAL HISTORY: 1. Colon resection times 4 due to Crohn's disease. 2. Cholecystectomy. 3. Appendectomy. OUTPATIENT MEDICATIONS: Per the EMR and awaiting verification. ALLERGIES: FENTANYL, NSAIDS, LATEX, ZOFRAN AND MORPHINE. SOCIAL HISTORY: He lives in [place]. He is . He denies any tobacco, alcohol or illicit drug use. REVIEW OF SYSTEMS: Negative except as per History of Present Illness. PHYSICAL EXAMINATION: VITAL SIGNS: Temperature 98.5, heart rate 105, blood pressure 135/78, respiratory rate 18, O2 sat 94% on room air. GENERAL: This is a 48 year-old male patient who is lying in his hospital bed. He is in no acute distress. HEENT: Normocephalic and atraumatic. Pupils are equal and reactive. Oropharynx is clear. Oral mucous membranes are moist. NECK: Supple without mass. RESPIRATORY: Essentially clear to auscultation bilaterally. CHEST: There is equal rise and fall of the chest with inspiration and expiration. CARDIOVASCULAR: Regular rate and rhythm. GASTROINTESTINAL: Abdomen is slightly distended, but it is soft. It is diffusely tender but slightly more tender right lower quadrant. He states he feels pain in the left upper quadrant with palpation. There is no rebound tenderness or guarding. Bowel sounds are hypoactive, but present in all four quadrants. EXTREMITIES: No clubbing, cyanosis or edema. NEUROLOGIC: He is awake, alert and oriented times three. LABORATORY: Labs and films are as per the History of Present Illness. ASSESSMENT: 1. Exacerbation of Crohn's disease with a Crohn's disease assessment index of 362 which relates to moderate to severely active Crohn's disease. 2. Chronic pain syndrome. He sees Pain Management who gives him Hydrocodone. 3. Poor medical compliance due to no insurance coverage. He stopped taking his Humira about 4 to 5 months ago. 4. Nausea, vomiting and diarrhea secondary to #1. He has 10 to 12 episodes of diarrhea daily. 5. Anxiety and depression. PLAN: I have admitted the patient to the hospital. We will put him on bowel rest as well as some fluids. I have also started him on 80 mg of Solu-Medrol 2 times today. I spoke with Dr. Hightower about this patient and we agreed on the plan of care, and that I should call the GI doctor refinery operator polymerization plant in [place]. I just spoke with Dr. Delta Villanueva, art tracer in [place]. He recommended that he transition from IV Solu-Medrol to p.o. prednisone tomorrow and recommended that we advance his diet as tolerated as well as his medications, and to inform the patient that his pain would not be controlled until he got the inflammation under control. He also felt that going home on a prednisone taper of 40 mg times 1 week, 30 mg times 1 week, 20 mg times 1 week and then 10 mg times 1 week. It is also recommended that he get in to his PCP, which I am not sure is Dr. Adrian Cedeno or Dr. Xavier Hightower, to get into a GI specialist as soon as possible. I have advanced his diet for later today as he has had no complaints of vomiting. I have also restarted his home medication starting this afternoon and we will taper him off the IV Dilaudid. I have ordered a CT of the abdomen and pelvis to rule out any acute issues, although I am not expecting there to be any due to his lab work. The patient and I had a long discussion that the only way to get his Crohn's disease under control is to follow with GI closely and to take medications as prescribed by the GI doctor. I have rechecked his lab for in the morning. We will transition him to oral prednisone tomorrow as recommended and hopefully he can be discharged tomorrow or Tuesday. Will continue to monitor closely and follow as needed. #[id number] [facility]
--- NOTE | 2019-04-21 03:09 | RAD ---
CLINICAL HISTORY: ab pain. hx of Crohn's disease COMPARISON: None. TECHNIQUE: XR ABDOMEN 2 VIEWS SUPINE ERECT 04/21/2019 2:36 AM CDT FINDINGS: Bowel gas pattern is nonspecific. There are no abnormal radiopaque foreign bodies or abnormal calcifications. Osseous structures are grossly unremarkable. Cholecystectomy was performed. There are: Is distended with air, especially the transverse colon. There is no bowel obstruction. IMPRESSION: No bowel obstruction. Electronically signed by: Gael Negron MD 04/21/2019 3:08 AM CDT
[2019-04-21] MEDS ORDERED: diphenhydrAMINE HCL 50 MG/ML VIAL ONE (03:23)
[2019-04-21] MEDS ORDERED: diphenhydrAMINE HCL 50 MG/ML VIAL IV ONE (03:25)
[2019-04-21] MEDS: HYDROmorphone HCL INJ 2 MG/ML VIAL IV PRN ×6 (04:59→23:50)
[2019-04-21] MEDS ORDERED: SODIUM CHLORIDE 0.9% (FLUSH) 10 ML SYG IV PRN (07:38)
[2019-04-21] MEDS ORDERED: IV SET AND CAP CHANGE INJ INJ SCH (08:00)
[2019-04-21] MEDS ORDERED: PANTOPRAZOLE SODIUM IV 40 MG VIAL IV SCH (08:00)
[2019-04-21] MEDS: DIPHENOXYLATE HCL/ATROPINE 2.5 MG TAB PO SCH ×2 (08:57→11:50)
[2019-04-21] MEDS: methylPREDNISolone SODIUM SUC 125 MG/2 ML VIAL IV SCH ×2 (08:57→20:14)
[2019-04-21] MEDS: AMPHETAMINE DEXTROAMPHETAMINE PO SCH ×3 (08:59→19:57)
[2019-04-21] MEDS ORDERED: NON-FORMULARY MEDICATION 1 EA MIS (Duloxetine Hcl [Cymbalta] 60 MG) PO SCH (09:00)
[2019-04-21] MEDS ORDERED: SODIUM CHLORIDE 0.9% (FLUSH) 10 ML SYG IV SCH (09:00)
[2019-04-21] MEDS ORDERED: HYDROmorphone HCL INJ 2 MG/ML VIAL IV ONE (11:04)
[2019-04-21] MEDS: HYDROcodone 10MG/APAP 325MG 1 EA TAB PO SCH ×4 (11:30→22:57)
--- NOTE | 2019-04-21 11:49 | CT ---
EXAM: CT Abdomen and Pelvis Without Intravenous Contrast CLINICAL HISTORY: 48 years old and is Male; Crohn's disease exac TECHNIQUE: Axial computed tomography images of the abdomen and pelvis without intravenous contrast. Sagittal and coronal reformatted images were created and reviewed. This CT exam was performed using one or more of the following dose reduction techniques: automated exposure control, adjustment of the mA and/or kV according to patient size, and/or use of iterative reconstruction technique. COMPARISON: 09/27/2018 FINDINGS: Limitations: None. Lung bases: Unremarkable. No mass. No consolidation. Mediastinum: Small sliding hiatal hernia noted. ABDOMEN: Liver: Slightly enlarged liver. Gallbladder and bile ducts: Cholecystectomy. No ductal dilation. Pancreas: Unremarkable. No ductal dilation. Spleen: Unremarkable. No splenomegaly. Adrenals: Unremarkable. No mass. Kidneys and ureters: Unremarkable. No obstructing stones. No hydronephrosis. Stomach and bowel: Right colectomy changes. Multiple small bowel resection staple lines present. There is mild prominent fluid deposition throughout the small bowel and remaining colonic segments. There is mild formed stool in the distal colon. No obstruction. PELVIS: Bladder: Unremarkable. No stones. Reproductive: Unremarkable as visualized. ABDOMEN and PELVIS: Intraperitoneal space: Unremarkable. No free air. No significant fluid collection. Bones/joints: No acute fracture. No dislocation. Soft tissues: Unremarkable. Vasculature: Unremarkable. No abdominal aortic aneurysm. Lymph nodes: Newly identified minimally inflamed prominent lymph nodes in the mesentery present. IMPRESSION: 1. Mildly inflamed prominent mesenteric lymph nodes likely indicating adenitis. 2. Mild ileus. Electronically signed by: Sania Underwood MD 04/21/2019 11:47 AM CDT
[2019-04-21] MEDS: PROMETHAZINE HCL INJ 25 MG in SODIUM CHLORIDE 0.9% 50ML 50 ML IVPB PRN ×2 (11:52→20:02)
[2019-04-21] MEDS: DEX 5% W/NACL 0.45% 1000ML 1,000 ML IVS PRN ×2 (12:30→20:00)
[2019-04-21] MEDS ORDERED: DIPHENOXYLATE HCL/ATROPINE 2.5 MG TAB PO SCH (17:00)
[2019-04-21] MEDS: HYOSCYAMINE SULFATE 0.125 MG TAB PO SCH (20:14)
[2019-04-21] MEDS: DULoxetine HCL 30 MG CAP PO SCH (20:16)
[2019-04-21] MEDS ORDERED: ENOXAPARIN SODIUM 40 MG/0.4 ML SYG SUBCU SCH (21:00)
[2019-04-22] MEDS: HYDROcodone 10MG/APAP 325MG 1 EA TAB PO SCH ×3 (02:43→12:11)
[2019-04-22] MEDS ORDERED: PROMETHAZINE HCL INJ 25 MG/ML VIAL ONE (04:05)
[2019-04-22] MEDS ORDERED: SODIUM CHLORIDE 0.9% 50ML 50 ML ONE (04:06)
[2019-04-22] MEDS: PROMETHAZINE HCL INJ 25 MG in SODIUM CHLORIDE 0.9% 50ML 50 ML IVPB PRN (04:09)
[2019-04-22] MEDS: HYDROmorphone HCL INJ 2 MG/ML VIAL IV PRN (04:11)
[2019-04-22] MEDS: DEX 5% W/NACL 0.45% 1000ML 1,000 ML IVS PRN (04:38)
[2019-04-22] MEDS ORDERED: PANTOPRAZOLE SODIUM TAB 40 MG PO SCH (06:30)
[2019-04-22] MEDS: HYOSCYAMINE SULFATE 0.125 MG TAB PO SCH (08:39)
[2019-04-22] MEDS: DIPHENOXYLATE HCL/ATROPINE 2.5 MG TAB PO SCH ×2 (08:39→12:12)
[2019-04-22] MEDS: DULoxetine HCL 30 MG CAP PO SCH (08:40)
[2019-04-22] MEDS: AMPHETAMINE DEXTROAMPHETAMINE PO SCH (08:40)
[2019-04-22] MEDS ORDERED: MONTELUKAST 10 MG TAB PO SCH (09:00)
[2019-04-22] MEDS ORDERED: LISINOPRIL 10 MG TAB PO SCH (09:00)
[2019-04-22] MEDS ORDERED: predniSONE 20 MG TAB PO SCH (09:00)
[2019-04-22 12:31] VITALS: BP 127/72; TEMP 98.7; O2SAT 99
--- NOTE | 2019-04-27 14:28 | DS ---
SUPERVISING PHYSICIAN: Xavier Hightower MD DISCHARGE DIAGNOSIS: 1. Mild exacerbation of Crohn's disease with a significant history of previous hospitalizations for Crohn's exacerbations. 2. Chronic pain syndrome. He sees Pain Management who gives him hydrocodone. 3. Poor medical compliance due to no insurance coverage as well as not following up with his specialists. He stopped taking his Humira about 4 to 5 months ago. 4. Nausea, vomiting and diarrhea secondary to #1. He has had 10 to 12 episodes of diarrhea daily prior to admission, but during his stay in the hospital, he has had no stools. 5. Anxiety and depression. HISTORY OF PRESENT ILLNESS: This is a 48-year-old male patient who has a longstanding history of Crohn's disease. He has also had 4 bowel resections due to complications from Crohn's disease. Prior to coming to the Emergency Room, he said he has had about 10 to 12 bowel movements per day for the last 2 to 3 weeks. He actually has seen some blood in the toilet. His pain is diffuse but mostly in the right lower quadrant. He does have some radiation to the left upper quadrant. He does take [place] at home but he says that is for spinal stenosis and has a pain contract with the pain management physician. He previously was on Humira and he stopped taking that due to losing his insurance as well as the expense. He was seeing Adrian Cedeno MD, as primary care physician in the past, but was going to try to go see Dr. Xavier Hightower. He also has seen Dr. Lopez and Dr. Ramos, both GI doctors in [place] in the past. Initially on admission, he said he wanted to switch to a GI doctor in the [facility] [place]. In the Emergency Room, his vital signs were temperature 98.2, heart rate 103, blood pressure 145/122, respiratory rate 18, O2 sat 98%. Lab was done in the Emergency Room and CBC was basically within normal limits with the exception of his platelets were slightly high at 429. Metabolic panel was within normal limits with the exception of serum osmolality was 274.1. Urinalysis was unremarkable. Abdominal x-ray showed no bowel obstruction. He was given some fluids in the Emergency Room as well as some Zantac, Phenergan and 125 mg of Solu-Medrol. He had a mild reaction to morphine, which was a mild rash and he received some Benadryl. There was no shortness of breath or wheezing. There was no nausea or vomiting noted. I was called for hospital admission. HOSPITAL COURSE: The patient was admitted to the hospital and was placed on bowel rest as well as some IV fluids. He was given 80 mg of Solu-Medrol q.12h. I spoke with Dr. Hightower about this patient and we agreed on the plan of care and that I should call the GI doctor immigration specialist in [place]. I spoke with Dr. Delta Villanueva, raise drill operator in [place]. He actually spoke to Dr. Lopez, the patient's previous GI doctor. He recommended that we transition from IV Solu-Medrol to p.o. prednisone as soon as his diet is advanced and he no longer has any nausea or vomiting. The patient was transitioned to the prednisone taper 40 mg daily. He was given Dilaudid 0.5 to 1 mg q.4h. Multiple times, he did ask for an extra dose and was actually given several doses of 0.5 mg and at one time actually asked for it to be at 3 mg per dose. His Dilaudid was not increased. His vital signs remained stable. He was transitioned from NPO status to a clear liquid. His medications were re-started. I was unable to get a stool sample as the patient had no bowel movements while he was in the hospital. His home medications were restarted. There were some concerns with his dosing of Lomotil as Dr. Villanueva voiced some concerns that he was on an extremely high dose of Lomotil which was 5 mg at 5 PM daily and 7.5 mg at 8 AM and 11 AM. The patient verified that there were his correct doses of Lomotil. Today, the patient remained stable. His temperature is 97.9, heart rate 101, blood pressure 117/69, respiratory rate 18, O2 96% on room air. He has had no nausea or vomiting, no diarrhea and he will be discharged home in stable condition with close followup with his GI doctor as well as his primary care physician. LABORATORY: WBC on admission 10,400 and did increase to 18,500, but he was on steroids. His H&H on admission were hemoglobin 14.4 and hematocrit 42.1, today are 12.3 and 37.1. Platelet count was 429 and today is 406. Metabolic panel today was unremarkable. His glucose was slightly high at 202, but again he did have steroids. Serum total protein was 6.1 with albumin 3.1. All other values were within normal limits. RADIOLOGY: I obtained and abdomen and pelvis CT prior to the patient's discharge so he could have a disc to take to his GI doctor. It showed 1) Mildly inflamed prominent mesenteric lymph nodes, likely indicating adenitis. 2) Mild ileus. DISCHARGE PLAN: The patient will be discharged home in stable condition. He is to followup with his primary care physician as well as his GI doctor as soon as possible. Prior to discharge, the patient did say he had texted a picture of his CT scan results to Dr. Ramirez at [facility] in [place] and felt he was being discharged too early. I explained that we had given him fluids for his exacerbation and that there was no GI physicians available and that his best course was to see his GI doctor as soon as possible. I told him that Dr. Ramirez could call me or I would call him to discuss his condition and he declined to have me call the GI specialist or have the GI specialist call me. The patient was given the disc for his CT results to take to his GI doctor. He was also discharged on 4 weeks' worth of prednisone that was tapered. He should have 40 mg daily for 1 week, 30 mg daily for 1 week, 20 mg daily for 1 week, and 10 mg for 1 week. He is to return to the hospital or followup with his GI doctor or primary care physician for any problems or complications. Again, I stressed the importance of having close followup with his GI doctor. DISCHARGE MEDICATIONS: 1. Hydrocodone. 2. Duloxetine. 3. Zolpidem. 4. Lisinopril. 5. Lomotil. 6. Imitrex. 7. Singulair. 8. Promethazine. 9. Vitamin B12. 10. Tizanidine. 11. Adderall. 12. Levsin. 13. Prednisone taper. #[id number] [facility]
== END 2019-04-22 13:55 | disposition home or self-care (01) | DRG 386 ==
LOC: ER 01:12 → OBSVTOIN 03:05 → MS 03:05
PROVIDERS: ADMIT Nurse Practitioner Acute Care; ATTEND Nurse Practitioner Acute Care
DX: K50.911 Crohn's disease, unspecified, with rectal bleeding (principal); K56.7 Ileus, unspecified; G89.4 Chronic pain syndrome; T39.4X6A Underdosing of antirheumatics, not elsewhere classified, initial encounter; Z91.120 Patient's intentional underdosing of medication regimen due to financial hardship; F41.9 Anxiety disorder, unspecified; F32.9 Major depressive disorder, single episode, unspecified; G47.00 Insomnia, unspecified; G62.9 Polyneuropathy, unspecified; Z90.49 Acquired absence of other specified parts of digestive tract; Z86.711 Personal history of pulmonary embolism; Y92.009 Unspecified place in unspecified non-institutional (private) residence as the place of occurrence of the external cause; Z88.5 Allergy status to narcotic agent; Z88.6 Allergy status to analgesic agent; Z91.040 Latex allergy status; Z88.8 Allergy status to other drugs, medicaments and biological substances; Z79.891 Long term (current) use of opiate analgesic; Z79.899 Other long term (current) drug therapy

== ENCOUNTER → 2019-07-27 | Outpatient (CLI) | payer OTHER | LOC: LAB.O 14:25 | PROVIDERS: ATTEND Nurse Practitioner Family | DX: R19.7 Diarrhea, unspecified (principal) ==

== ENCOUNTER 2019-10-05 12:12 | Emergency (ER) | payer BC, OTHER ==
[2019-10-05 12:27] VITALS: TEMP 97.2
[2019-10-05] MEDS ORDERED: PROMETHAZINE HCL INJ 25 MG in SODIUM CHLORIDE 0.9% 50ML 50 ML IVPB ONE (12:28)
[2019-10-05] MEDS ORDERED: SODIUM CHLORIDE 0.9% 1000ML 1,000 ML IVS ONE (12:28)
[2019-10-05] MEDS ORDERED: PROMETHAZINE HCL INJ 25 MG/ML VIAL ONE (12:43)
[2019-10-05] MEDS ORDERED: SODIUM CHLORIDE 0.9% 50ML 50 ML ONE (12:43)
--- NOTE | 2019-10-05 13:10 | RAD ---
EXAM DESCRIPTION: Abdomen Series CLINICAL HISTORY: 49 years Male, abd pain hx crohns COMPARISON: None. Findings: Three radiographs No acute cardiopulmonary abnormality. The lungs are clear. No pneumothorax. No pleural effusion. No free air beneath the diaphragm. Nonobstructive bowel gas pattern. No air-fluid level identified. Surgical clips overlie the right upper quadrant. No suspicious calcification. No acute osseous abnormality. IMPRESSION: No acute radiographic abnormality. Electronically signed by: Ananth Johnson MD 10/05/2019 1:08 PM [facility]
[2019-10-05] MEDS ORDERED: metroNIDAZOLE IV PREMIX 500MG 500 MG in PREMIX BAG 1 BAG IVPB ONE (13:27)
[2019-10-05] MEDS ORDERED: methylPREDNISolone SODIUM SUC 125 MG/2 ML VIAL IV ONE (13:27)
[2019-10-05] MEDS ORDERED: PANTOPRAZOLE SODIUM IV 40 MG VIAL IV ONE (13:28)
[2019-10-05] MEDS ORDERED: SCOPOLAMINE PATCH 1.5MG 1 EA TD ONE (13:29)
[2019-10-05] MEDS ORDERED: metroNIDAZOLE IV PREMIX 500MG 0 ML IVPB ONE (13:40)
[2019-10-05] MEDS ORDERED: metroNIDAZOLE IV PREMIX 500MG 100 ML IVPB ONE (13:41)
[2019-10-05] MEDS ORDERED: MORPHINE SULFATE INJ 10 MG/ML VIAL IV ONE ×2 (13:46→15:01)
[2019-10-05 14:37] VITALS: O2SAT 95
--- NOTE | 2019-10-05 14:52 | ED.PDOC ---
History of Present Illness - General Chief Complaint: Abdominal Pain Time Seen by Provider: 10/05/19 12:18 Source: patient Exam Limitations: no limitations - History of Present Illness Initial Comments: the patient is a 49-year-old male presenting to emergency room secondary to abdominal pain has been worsening over the last month to month and a half. The patient has known Crohn's disease and has had for 5 bowel resections in the past. No fevers. He has been taking a few antibiotics he has been had lying around the house as well as some low-dose steroid. Over the last couple of days he has had several episodes of nausea and vomiting. He takes Lomotil on a continuous basis as his only Crohn's medication. He reports that he is unable to obtain treatment for his Crohn secondary to his insurance not being willing to pay for adequate treatment. He has been on steroids before. He does not have a gallbladder or appendix anymore according to him. No blood in the vomitus. No real new unusual diarrhea or constipation. He has been passing gas.abdominal pain is moderate. He is taking his hydrocodone from his pain management doctor. Timing/Duration: other Severity: moderate Improving Factors: nothing Worsening Factors: eating Associated Symptoms: loss of appetite, malaise, nausea/vomiting Allergies/Adverse Reactions: Allergies Fentanyl Allergy (Verified 09/27/18 03:00) Latex Allergy (Verified 04/07/18 23:38) Morphine and Related Allergy (Verified 04/21/19 04:13) NSAIDs Allergy (Verified 09/27/18 03:00) doesn't take NSAIDS due to Chrohn's Disease Ondansetron [From Zofran] Allergy (Verified 04/07/18 23:38) Home Medications: Ambulatory Orders Duloxetine HCl [Cymbalta] 60 mg PO BID 01/01/17 HYDROcodone 10MG/APAP 325MG [[place] 10/325] 1 ea PO Q4H 01/01/17 Diphenoxylate/Atropine [Lomotil Tab] 5 mg PO 1700 11/26/17 Diphenoxylate/Atropine [Lomotil Tab] 7.5 mg PO 0800,1100 11/26/17 Montelukast [Singulair] 10 mg PO DAILY 09/27/18 Promethazine HCl 25 mg PO PRN PRN 09/27/18 Amphetamine-Dextroamphetamine [Adderall 30 mg] 1 tab PO TID 04/21/19 Review of Systems - Review of Systems Constitutional: States: malaise EENTM: States: no symptoms reported Respiratory: States: no symptoms reported Cardiology: States: no symptoms reported Gastrointestinal/Abdominal: States: abdominal pain, nausea, vomiting Genitourinary: States: no symptoms reported Musculoskeletal: States: no symptoms reported Skin: States: no symptoms reported Neurological: States: no symptoms reported Endocrine: States: no symptoms reported All other Systems: No Change from Baseline Past Medical History (General) - Patient Medical History Hx Seizures: No Hx Stroke: No Hx Dementia: No Hx Asthma: Yes Hx of COPD: No Hx Cardiac Disorders: No Hx Congestive Heart Failure: No Hx Pacemaker: No Hx Hypertension: No Hx Thyroid Disease: No Hx Diabetes: No Hx Gastroesophageal Reflux: No Hx Renal Disease: No Hx Cancer: No Hx of HIV: No Hx Hepatitis C: No Hx MRSA: No Surgical History: cholecystectomy, other - Vaccination History Hx Tetanus, Diphtheria Vaccination: Yes Hx Influenza Vaccination: Yes Hx Pneumococcal Vaccination: Yes - Social History Hx Tobacco Use: No Hx Chewing Tobacco Use: No Hx Alcohol Use: No Hx Substance Use: No Hx Substance Use Treatment: No Hx Depression: No Feels Threatened In Home Enviroment: No Feels Threatened In a Relationship: No Hx Physical Abuse: No Hx Emotional Abuse: No Hx Suspected Abuse: No - Female History Patient : No - Triage Comment ED Triage Comment: Pt was holding his right upper quadrant and rated his pain an 8. Family Medical History - Family History Grandparents Cause of : cancer Hx Family;Other: Father had a recent bypass Father Family History: No Known Living Status: Still Living Hx Family Hypertension: Yes Hx Cardiac Disease: Yes Hx Family Diabetes: Yes Hx Family Cancer: No Mother Family History: No Known Living Status: Still Living Hx Family Asthma: No Hx Family Congestive Heart Failure: No Hx Family Hypertension: Yes Hx Family Stroke: Yes Hx Cardiac Disease: Yes Hx Family Diabetes: No Hx Family Cancer: No Physical Exam - Physical Exam General Appearance: Alert, Comfortable, No apparent distress Eye Exam: bilateral normal Ears, Nose, Throat: hearing grossly normal, normal ENT inspection Neck: full range of motion, supple Respiratory: lungs clear, normal breath sounds, no respiratory distress, no accessory muscle use Cardiovascular/Chest: normal peripheral pulses, regular rate, rhythm, no edema Peripheral Pulses: radial,right: 2+, radial,left: 2+ Gastrointestinal/Abdominal: soft, other - mild to moderate discomfort palpation towards the right side of the mid abdomen. No definite palpable mass. No rebound or peritoneal signs at this point. No bruising. No evidence of any fistula formation to the outside. Rectal Exam: deferred Back Exam: no CVA tenderness, no vertebral tenderness Neurologic: vp ancillary II-XII nml as tested, alert, normal mood/affect, oriented x 3 Skin Exam: normal color Comments: Vital Signs - 24 hr 10/05/19 10/05/19 10/05/19 12:17 13:13 14:36 Temperature 97.2 F L Pulse Rate [L 95 H 94 H 87 Finger] Respiratory 20 18 18 Rate Blood Pressure 139/103 162/111 136/85 [Left Arm] O2 Sat by Pulse 99 98 95 Oximetry Progress - Progress Progress: 10/05/19 14:54 the patient is a 49-year-old male presenting secondary to what is most likely a recurrent Crohn's flare. The patient will be written for ciprofloxacin and metronidazole to be taken at low doses for the next week. He will also be written for higher dose prednisone to be taken over the next 3 weeks. At this point there is no evidence of perforation or obstruction. Obviously if the patient's clinical condition worsens in some way then repeat evaluation would be warranted. Otherwise if he is continuing to improve then he needs to follow-up with his primary care doctor around the middle of next week. I do recommend primarily liquid diet for right now. The patient is going to be discharged with a scopolamine patch in place that can be left in place for 3 days to help control nausea. He will also be written for some Phenergan to control nausea and vomiting if needed. He needs to maintain a bland diet otherwise. 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 ER warnings were given. [email or web address] coleman [phone] - Results/Orders Results/Orders: acute abdominal series appears benign. See report for details. No obstruction and no obvious free air. Laboratory Tests 10/05/19 10/05/19 10/05/19 12:44 12:44 12:44 WBC 12.1 H RBC 4.94 Hgb 13.8 L Hct 41.1 L MCV 83.2 MCH 27.9 MCHC 33.5 RDW 13.4 Plt Count 473 H MPV 6.7 L Absolute Neuts (auto) 9.00 H Absolute Lymphs (auto) 1.90 Absolute Monos (auto) 0.80 Absolute Eos (auto) 0.30 Absolute Basos (auto) 0.10 Neutrophils % 74.1 Lymphocytes % 15.8 L Monocytes % 6.8 Eosinophils % 2.5 Basophils % 0.8 Sodium 138 Potassium 3.2 L Chloride 103 Carbon Dioxide 24 Anion Gap 14.2 BUN 12 Creatinine 0.82 BUN/Creatinine Ratio 14.6 Random Glucose 136 H Serum Osmolality 277.5 Lactic Acid 2.6 H* Calcium 9.0 Magnesium 1.8 Total Bilirubin 0.3 AST 33 ALT 33 Alkaline Phosphatase 67 Serum Total Protein 6.9 Albumin 3.7 Globulin 3.2 Albumin/Globulin Ratio 1.2 Amylase 43 Lipase 31 Urine Color Urine Appearance Urine pH Ur Specific [place] Urine Protein Urine Glucose (UA) Urine Ketones Urine Blood Urine Nitrite Urine Bilirubin Urine Urobilinogen Ur Leukocyte Esterase Urine RBC Urine WBC Ur Epithelial Cells Urine Bacteria Urine Mucus 10/05/19 13:56 WBC RBC Hgb Hct MCV MCH MCHC RDW Plt Count MPV Absolute Neuts (auto) Absolute Lymphs (auto) Absolute Monos (auto) Absolute Eos (auto) Absolute Basos (auto) Neutrophils % Lymphocytes % Monocytes % Eosinophils % Basophils % Sodium Potassium Chloride Carbon Dioxide Anion Gap BUN Creatinine BUN/Creatinine Ratio Random Glucose Serum Osmolality Lactic Acid Calcium Magnesium Total Bilirubin AST ALT Alkaline Phosphatase Serum Total Protein Albumin Globulin Albumin/Globulin Ratio Amylase Lipase Urine Color Dk yellow Urine Appearance Clear Urine pH 5.5 Ur Specific [place] >= 1.030 Urine Protein Negative Urine Glucose (UA) Negative Urine Ketones Negative Urine Blood Trace-lysed H Urine Nitrite Negative Urine Bilirubin Negative Urine Urobilinogen 0.2 Ur Leukocyte Esterase Negative Urine RBC 3-5 H Urine WBC 0-1 Ur Epithelial Cells 0 Urine Bacteria 1+ Urine Mucus Moderate Departure - Departure Clinical Impression: Mild dehydration Crohn's colitis Qualifiers: Digestive disease complication type: unspecified complication Qualified Code(s): K50.119 - Crohn's disease of large intestine with unspecified complications Disposition: Discharge to Home or Self Care Condition: Fair Departure Forms: ED Discharge - Pt. Copy, Patient Portal Self Enrollment Instructions: Crohn's Disease in Adults Diet: bland diet Activity: increase activity as tolerated Referrals: OBDULIA CHRISTINE IV, PIPELAYING FITTER [Primary Care Provider] - 1-2 Weeks Home Medications: Ambulatory Orders Duloxetine HCl [Cymbalta] 60 mg PO BID 01/01/17 HYDROcodone 10MG/APAP 325MG [[place] 10/325] 1 ea PO Q4H 01/01/17 Diphenoxylate/Atropine [Lomotil Tab] 5 mg PO 1700 11/26/17 Diphenoxylate/Atropine [Lomotil Tab] 7.5 mg PO 0800,1100 11/26/17 Montelukast [Singulair] 10 mg PO DAILY 09/27/18 Promethazine HCl 25 mg PO PRN PRN 09/27/18 Amphetamine-Dextroamphetamine [Adderall 30 mg] 1 tab PO TID 04/21/19 Additional Instructions: the patient is a 49-year-old male presenting secondary to what is most likely a recurrent Crohn's flare. The patient will be written for ciprofloxacin and metronidazole to be taken at low doses for the next week. He will also be written for higher dose prednisone to be taken over the next 3 weeks. At this point there is no evidence of perforation or obstruction. Obviously if the patient's clinical condition worsens in some way then repeat evaluation would be warranted. Otherwise if he is continuing to improve then he needs to follow-up with his primary care doctor around the middle of next week. I do recommend primarily liquid diet for right now. The patient is going to be discharged with a scopolamine patch in place that can be left in place for 3 days to help control nausea. He will also be written for some Phenergan to control nausea and vomiting if needed. He needs to maintain a bland diet otherwise. He can also picking machine operator helper an [id number] acid maintenance foreman such as Pepcid, Prevacid or Nexium and take that twice daily for the next couple of weeks as well. ER warnings were given.
[2019-10-05 15:13] VITALS: BP 132/81
== END 2019-10-05 15:12 | disposition home or self-care (01) ==
LOC: ER 12:12
DX: K50.119 Crohn's disease of large intestine with unspecified complications (principal); E86.0 Dehydration; J45.909 Unspecified asthma, uncomplicated; Z90.49 Acquired absence of other specified parts of digestive tract; Z79.899 Other long term (current) drug therapy; Z88.8 Allergy status to other drugs, medicaments and biological substances; Z88.6 Allergy status to analgesic agent; Z88.5 Allergy status to narcotic agent; Z91.040 Latex allergy status
CPT/HCPCS: 36415; 74019; 80053; 81001; 82150; 83605; 83690; 83735; 85025; A4216; J2270; J2550; J2930; J3490; J7030